=== PATIENT | female | born 1975 | race Caucasian/White ===

== ENCOUNTER 2018-06-18 15:52 | Emergency (ER) | payer OTHER ==
[2018-06-18] MEDS ORDERED: KETOROLAC 30 MG/ML INJ ONE (17:28)
--- NOTE | 2018-06-18 19:08 | EDPHYS ---
Physician Documentation [facility] Name: Sonam Bates Age: 42 yrs Sex: Female : 1975 Arrival Date: 06/18/2018 Time: 15:54 Bed 6 Private MD: Barron Vivas, A ED Physician Red Donaldson HPI: 06/18 19:49 This 42 yrs old Female presents to ER via Ambulatory with complaints of gs Urinary Retention - S/P Lithotripsy, Pelvic Pain. 19:49 Onset: The symptoms/episode began/occurred acutely, today. Modifying factors: The gs symptoms are alleviated by nothing, the symptoms are aggravated by nothing. Associated signs and symptoms: Pertinent positives: urinary frequency, Pertinent negatives: vomiting. Severity of symptoms: At their worst the symptoms were severe, in the emergency department the symptoms are unchanged. The patient has been recently seen by a physician: Dr. tasha quigley [facility]. Historical: - Allergies: 16:22 No Known Allergies; ch - Home Meds: 19:50 Abilify 5 mg Oral tab 1 tab once daily [Active]; Cymbalta Oral [Active]; Metoprolol tl2 Tartrate Oral [Active]; - PMHx: 16:22 Anxiety; Depression; ch - PSHx: 16:22 c section; tummy tuck; ch - Immunization history:: Adult Immunizations up to date. - Social history:: Smoking status: Patient/guardian denies using tobacco, Patient/guardian denies using alcohol, street drugs. - Ebola Screening: : Patient negative for fever greater than or equal to 101.5 degrees Fahrenheit, and additional compatible Ebola Virus Disease symptoms Patient denies exposure to infectious person Patient denies travel to an Ebola-affected area in the 21 days before illness onset No symptoms or risks identified at this time. ROS: 19:49 All other systems are negative. gs Exam: 19:49 Head/Face: Normocephalic, atraumatic. Eyes: Pupils equal round and reactive to light, gs extra-ocular motions intact. Lids and lashes normal. Conjunctiva and sclera are non-icteric and not injected. Cornea within normal limits. Periorbital areas with no swelling, redness, or edema. ENT: Nares patent. No nasal discharge, no septal abnormalities noted. Tympanic membranes are normal and external auditory canals are clear. Oropharynx with no redness, swelling, or masses, exudates, or evidence of obstruction, uvula midline. Mucous membranes moist. Neck: Trachea midline, no thyromegaly or masses palpated, and no cervical lymphadenopathy. Supple, full range of motion without nuchal rigidity, or vertebral point tenderness. No Meningismus. Chest/axilla: Normal chest wall appearance and motion. Nontender with no deformity. No lesions are appreciated. Cardiovascular: Regular rate and rhythm with a normal S1 and S2. No gallops, murmurs, or rubs. Normal PMI, no JVD. No pulse deficits. Respiratory: Lungs have equal breath sounds bilaterally, clear to auscultation and percussion. No rales, rhonchi or wheezes noted. No increased work of breathing, no retractions or nasal flaring. Back: No spinal tenderness. No costovertebral tenderness. Full range of motion. Skin: Warm, dry with normal turgor. Normal color with no rashes, no lesions, and no evidence of cellulitis. MS/ Extremity: Pulses equal, no cyanosis. Neurovascular intact. Full, normal range of motion. Neuro: Awake and alert, GCS 15, oriented to person, place, time, and situation. Cranial nerves II-XII grossly intact. Motor strength 5/5 in all extremities. Sensory grossly intact. Cerebellar exam normal. Normal gait. 19:49 Constitutional: The patient appears alert, awake, uncomfortable. 19:49 Abdomen/GI: Inspection: distension, that is mild, in the suprapubic area, Palpation: moderate abdominal tenderness, in the suprapubic area. Vital Signs: 16:33 BP 112 / 98; Pulse 87; Resp 16; Temp 97.9; Pulse Ox 97% on R/A; Weight 81.65 kg; Height ss 5 ft. (152.40 cm); Pain 9/10; 17:30 BP 116 / 81; Pulse 91; Resp 16; Pulse Ox 99% on R/A; ph 19:04 BP 117 / 67; Pulse 81; Resp 16; Pulse Ox 98% on R/A; ph 16:33 Body Mass Index 35.15 (81.65 kg, 152.40 cm) MDM: 16:49 Patient medically screened. 19:49 Data reviewed: vital signs, nurses notes, lab test result(s). Response to treatment: the patient's symptoms have resolved after treatment, and as a result, I will discharge patient. Physician consultation: Barron Vivas MD and will see patient later today. 06/18 16:52 Order name: Urine Microscopic Only 06/18 19:49 Order name: Urine Culture [facility] 06/18 16:52 Order name: Urine Dipstick-Ancillary (obtain specimen): cath; Complete Time: 19:10 06/18 19:51 Order name: Leg Bag; Complete Time: 19:51 tl2 Administered Medications: 17:35 Drug: TORadol 15 mg Route: IVP; Site: left antecubital; ph 19:10 Follow up: Response: No adverse reaction; Pain is decreased ph Disposition: 06/18/18 19:07 Discharged to Home. Impression: Pelvic and perineal pain, Retention of urine. - Condition is Stable. - Discharge Instructions: Pelvic Pain, Female, [id number], Hensley Catheter Care, Adult, [id number]. - Medication Reconciliation Form, Thank You Letter, Antibiotic Education, Prescription Opioid Use form. - Follow up: Barron Vivas MD; When: 2 - 3 days; Reason: Re-evaluation by your physician. Signatures: Dispatcher [employer] [facility] Antonette Mitchell RN RN Rocio Matthews RN RN Lisa Randall RN RN Rekha Flowers RN RN tl2 Red Donaldson MD MD Corrections: (The following items were deleted from the chart) 19:51 19:07 06/18/2018 19:07 Discharged to Home. Impression: Pelvic and perineal pain; tl2 Retention of urine. Condition is Stable. Forms are Medication Reconciliation Form, Thank You Letter, Antibiotic Education, Prescription Opioid Use. Follow up: Barron Vivas; When: 2 - 3 days; Reason: Re-evaluation by your physician.
--- NOTE | 2018-06-18 19:08 | ER ---
Nurse's Notes [facility] Name: Sonam Bates Age: 42 yrs Sex: Female : 1975 Arrival Date: 06/18/2018 Time: 15:54 Bed 6 Private MD: Barron Vivas A Diagnosis: Pelvic and perineal pain;Retention of urine Presentation: 06/18 16:33 Presenting complaint: Patient states: DR. VIVAS DID LITHOTRIPSY TODAY WITH A KIDNEY ss STENT INSERTED. PT C/O PAIN TO URETHRA, BLADDER, L FLANK. PT REQUESTS WE PAGE DR VIVAS. Transition of care: patient was not received from another setting of care. Onset of symptoms was June 18, 2018 at 10:00. Risk Assessment: Do you want to hurt yourself or someone else? Patient reports no desire to harm self or others. Initial Sepsis Screen: Does the patient meet any 2 criteria? No. Patient's initial sepsis screen is negative. Does the patient have a suspected source of infection? No. Patient's initial sepsis screen is negative. Care prior to arrival: None. 16:33 Method Of Arrival: Ambulatory ss 16:33 Acuity: JACOB 5 ss Triage Assessment: 16:33 General: Appears in no apparent distress. comfortable, Behavior is calm, cooperative, ss appropriate for age. Pain:. Historical: - Allergies: 16:22 No Known Allergies; ch - Home Meds: 19:50 Abilify 5 mg Oral tab 1 tab once daily [Active]; Cymbalta Oral [Active]; Metoprolol tl2 Tartrate Oral [Active]; - PMHx: 16:22 Anxiety; Depression; - PSHx: 16:22 c section; jeff hernandez; - Immunization history:: Adult Immunizations up to date. - Social history:: Smoking status: Patient/guardian denies using tobacco, Patient/guardian denies using alcohol, street drugs. - Ebola Screening: : Patient negative for fever greater than or equal to 101.5 degrees Fahrenheit, and additional compatible Ebola Virus Disease symptoms Patient denies exposure to infectious person Patient denies travel to an Ebola-affected area in the 21 days before illness onset No symptoms or risks identified at this time. Screenin:15 Abuse screen: Denies threats or abuse. Denies injuries from another. Nutritional ph screening: No deficits noted. Tuberculosis screening: No symptoms or risk factors identified. Fall Risk None identified. Assessment: 17:00 General: Appears in no apparent distress. uncomfortable, well groomed, Behavior is ph calm, cooperative, appropriate for age. Pain: Complains of pain in suprapubic area Pain does not radiate. Neuro: Level of Consciousness is awake, alert, obeys commands, Oriented to person, place, time, situation. Cardiovascular: Capillary refill < 3 seconds in bilateral fingers Patient's skin is warm and dry. Respiratory: Airway is patent Respiratory effort is even, unlabored, Respiratory pattern is regular, symmetrical. GI: Abdomen is round non-distended, Reports lower abdominal pain, nausea, Patient currently denies diarrhea, vomiting. : Reports pain in suprapubic area urinary frequency, inability to completely empty bladder. Derm: Skin is intact, is healthy with good turgor, Skin is. Musculoskeletal: Circulation, motion, and sensation intact. Range of motion: intact in all extremities. 18:00 Reassessment: Patient appears in no apparent distress at this time. Patient and/or ph family updated on plan of care and expected duration. Pain level reassessed. Patient is alert, oriented x 3, equal unlabored respirations, skin warm/dry/pink. Pt reports that pain has decreased to 1/10 after IV pain medication. 19:03 Reassessment: Patient appears in no apparent distress at this time. Patient and/or ph family updated on plan of care and expected duration. Pain level reassessed. Patient is alert, oriented x 3, equal unlabored respirations, skin warm/dry/pink. Pt resting comfortably, denies pain, states, " There is still a little pressure but the pain is much better.". 19:47 Reassessment: Patient appears in no apparent distress at this time. Patient and/or tl2 family updated on plan of care and expected duration. Pain level reassessed. Patient is alert, oriented x 3, equal unlabored respirations, skin warm/dry/pink. Pt dove bag converted to leg bag, instructed on how to empty and lock bag. Pt verbalized understanding of discharge instructions, need for follow up Patient states feeling better. Vital Signs: 16:33 BP 112 / 98; Pulse 87; Resp 16; Temp 97.9; Pulse Ox 97% on R/A; Weight 81.65 kg; Height ss 5 ft. (152.40 cm); Pain 9/10; 17:30 BP 116 / 81; Pulse 91; Resp 16; Pulse Ox 99% on R/A; ph 19:04 BP 117 / 67; Pulse 81; Resp 16; Pulse Ox 98% on R/A; ph 16:33 Body Mass Index 35.15 (81.65 kg, 152.40 cm) ED Course: 15:54 Patient arrived in ED. as 15:55 Barron Vivas MD is Private Physician. as 16:33 Arm band placed on left wrist. Patient placed in an exam room, on a stretcher. ss 16:34 Triage completed. ss 16:35 Red Donaldson MD is Attending Physician. gs 17:06 Lisa Randall RN is Primary Nurse. ph 17:30 Inserted saline lock: 20 gauge in left antecubital area, using aseptic technique. ph 17:50 Dove cath inserted, using sterile technique, 16 Fr., by or, balloon inflated, to ph gravity drainage, returned kidney stone frag,ments noted. 18:15 Patient has correct armband on for positive identification. Placed in gown. Bed in low ph position. Call light in reach. Side rails up X 1. Pulse ox on. NIBP on. Warm blanket given. 18:18 No provider procedures requiring assistance completed. ph 18:56 Barron Vivas MD is Referral Physician. gs 19:47 IV discontinued, intact, bleeding controlled, No redness/swelling at site. Pressure tl2 dressing applied. Administered Medications: 17:35 Drug: TORadol 15 mg Route: IVP; Site: left antecubital; ph 19:10 Follow up: Response: No adverse reaction; Pain is decreased ph Outcome: 19:07 Discharge ordered by . gs 19:47 Discharged to home ambulatory, with family. tl2 19:47 Condition: stable 19:47 Discharge instructions given to patient, family, Instructed on discharge instructions, follow up and referral plans. dove care Demonstrated understanding of instructions, follow-up care, dove care 19:51 Patient left the ED. tl2 Signatures: Antonette Mitchell RN RN Mar Syed Shelby, RN RN Lisa Randall RN RN Rekha Flowers RN RN tl2 Red Donaldson MD MD Corrections: (The following items were deleted from the chart) 16:34 16:33 Acuity: JACOB 4 ss ss
[2018-06-18 19:46] LABS: Urine Bacteria >50 /HPF (<20); Urine Culture Reflex Order REFLEXED; Urine RBC >50 /HPF (NONE SEEN)
[2018-06-18 20:02] VITALS: TEMP 97.9
[2018-06-18 20:05] VITALS: BP 117/67; O2SAT 98
== END 2018-06-18 19:51 | disposition home or self-care (01) ==
LOC: ER 15:52
DX: R33.9 Retention of urine, unspecified (principal); F41.9 Anxiety disorder, unspecified; F32.9 Major depressive disorder, single episode, unspecified
CPT/HCPCS: 51702; 81015; 87086; 87088; 96374; 99284

== ENCOUNTER 2020-12-12 20:36 | Emergency (ER) | payer OTHER ==
--- OUTSIDE RECORDS SUMMARY | 2020-12-12 20:39 | XMS REPORT | Continuity of Care Document ---
:1975 Author Organization [facility] t Address [address] [place] [address] Care Team Providers Name Role Phone Lobo Jane Attending Clinician Flor Engel Attending Clinician Flor Engel Admitting Clinician Problems Condition Condition Condition Status Onset Resolution Last Treating Co mments Source Name Details Category Date Date Treatment Clinician Date KIDNEY Diagnosis Active 2019-06-12 Mem oria STONE 06-10 14:59:00 l KIDNEY 00:00: [place] STONE 00 Active 06/10/2019 [facility] Allergies, Adverse Reactions, Alerts This patient has no known allergies or adverse reactions. Medications This patient has no known medications. Vital Signs Vital Name Observation Time Observation Value Comments Source Heart Rate 2019-06-09 15:51:00 [facility] Height 2019-06-09 15:51:00 152.4 cm [facility] Weight 2019-06-09 15:51:00 [facility] BMI Calculated 2019-06-09 15:51:00 Memori al [facility] Systolic (mm Hg) 2019-06-09 15:51:00 Frantz rial Markus Diastolic (mm Hg) 2019-06-09 15:51:00 [facility] oriaustin Anderson Procedures This patient has no known procedures. Encounters Start End Encounter Admission Attending Care Care Encounter Source Date/Time Date/Time Type Type Clinicians Facility Department ID 2019-06-18 2019-06-18 Ambulatory nullFlavo [facility] 55 [id number] Memoria 16:00:00 16:00:00 Pre-Reg r Specialty 00 l Clinic [facility] 2019-06-18 2019-06-18 Outpatient ROBER Jane [facility] [id number] 10:00:00 10:00:00 Etienne Diamond 2019-06-12 2019-06-13 Outpatient nullFlavo [facility] [id number] Memoria 20:45:00 05:59:00 r Markus 00 [facility] 2019-06-12 2019-06-12 Outpatient MAMI EngelSE [facility] [id number] 14:45:00 23:59:00 [place] 00 2019-06-12 2019-06-12 Outpatient MHSE BRAYDEN [id number] MH 14:45:00 14:45:00 [facility] 2019-06-11 2019-06-11 Ambulatory nullFlavo [facility] 55 [id number] Memoria 16:00:00 16:00:00 Pre-Reg r Specialty 01 [facility] 2019-06-11 2019-06-11 Outpatient Lucinda MG MG [id number] 10:00:00 10:00:00 Etienne Diamond 2019-06-09 2019-06-10 Outpatient nullFlavo [facility] Multi 55 [id number] Memoria 15:20:00 05:59:59 r Specialty 02 [facility] 2019-06-09 2019-06-09 Outpatient Maren MG [facility] [id number] 09:20:00 23:59:59 [place] L 2019-06-09 2019-06-09 Outpatient MHIE [facility]IE [id number] Memoria 09:20:00 09:20:00 02 flor Aparicio Results This patient has no known results.
--- NOTE | 2020-12-13 01:27 | ER ---
Nurse's Notes [facility] Name: Sonam Bates Age: 44 yrs Sex: Female : 1975 Arrival Date: 12/12/2020 Time: 20:37 Bed Waiting Private MD: Diagnosis: Presentation: 12/12 21:24 Chief complaint: Patient's son or daughter states: Dog ran off and Pt went to go my vg1 dog; Pt carried 80lb. dog back home and pt began to have difficulty breathing, chest pain, shortness of breath. Pt states "Im trying to control my anxiety right now; Pt stated 'I stopped taking my anxiety mediations because I think they are giving me hives". Coronavirus screen: Vaccine status: Patient reports being unvaccinated. Ebola Screen: Patient negative for fever greater than or equal to 101.5 degrees Fahrenheit, and additional compatible Ebola Virus Disease symptoms. Initial Sepsis Screen: Does the patient meet any 2 criteria? No. Patient's initial sepsis screen is negative. Does the patient have a suspected source of infection? No. Patient's initial sepsis screen is negative. Risk Assessment: Do you want to hurt yourself or someone else? Patient reports no desire to harm self or others. Onset of symptoms was December 12, 2020. 21:24 Method Of Arrival: Wheelchair vg1 21:24 Acuity: JACOB 3 vg1 Triage Assessment: 21:29 General: Appears in no apparent distress. uncomfortable, Behavior is cooperative, vg1 anxious. Pain: Denies pain. Historical: - Allergies: 21:27 medical tape; vg1 21:27 Antibiotic ointment that startes with an 'M'; vg1 - Home Meds: 21:29 Abilify 5 mg Oral tab 1 tab once daily [Active]; Cymbalta Oral [Active]; Metoprolol vg1 Tartrate Oral [Active]; Metformin Oral [Active]; - PMHx: 21:27 Anxiety; Depression; vg1 - Immunization history:: Adult Immunizations up to date. - Social history:: Smoking status: Patient denies any tobacco usage or history of. Vital Signs: 21:24 BP 155 / 88; Pulse 114; Resp 22; Temp 97.7; Pulse Ox 100% ; Weight 81.65 kg; Height 5 vg1 ft. 0 in. (152.40 cm); Pain 0/10; 21:24 Body Mass Index 35.15 (81.65 kg, 152.40 cm) vg1 ED Course: 20:37 Patient arrived in ED. cf2 : Triage completed. vg1 21:29 Arm band placed on. EKG completed in triage. Results shown to MD. vg1 12/13 01:26 Patient's name was called from ER lobby. No response. Unable to locate patient. Will bb disposition as left without being seen by a provider. Administered Medications: No medications were administered Outcome: : Patient left the ED. bb Signatures: Scarlett Moncada RN RN bb Reinaldo Littlejohn cf2 Betzaida Ramirez, RN RN vg1 Corrections: (The following items were deleted from the chart) 12/12 21:29 21:24 Chief complaint: Patient's son or daughter states: Dog ran off and Pt went to go vg1 my dog; Pt carried 80lb. dog back home and pt began to have difficulty breathing, chest pain, shortness of breath. Pt states "Im trying to control my anxiety right now". vg1
[2020-12-13 01:35] VITALS: BP 155/88; TEMP 97.7; O2SAT 100
== END 2020-12-13 01:26 | disposition left against medical advice (07) ==
LOC: ER 20:36
DX: Z53.21 Procedure and treatment not carried out due to patient leaving prior to being seen by health care provider (principal)
CPT/HCPCS: 93005; 99281

== ENCOUNTER 2021-08-21 18:22 | Emergency (ER) | payer BC, OTHER ==
--- OUTSIDE RECORDS SUMMARY | 2021-08-21 18:24 | XMS REPORT | Continuity of Care Document ---
:1975 Author Organization [facility] t Address [address] [place] [address] Care Team Providers Name Role Phone Raghavendra MOBLEY Attending Clinician Unavailable Raghavendra MOBLEY Admitting Clinician Unavailable Problems Condition Condition Condition Status Onset Resolution Last Treating Co mments Source Name Details Category Date Date Treatment Clinician Date KIDNEY Diagnosis Active 2019-06-12 Mem oria STONE 06-10 14:59:00 l KIDNEY 00:00: [place] STONE 00 Active 06/10/2019 [facility] Allergies, Adverse Reactions, Alerts This patient has no known allergies or adverse reactions. Medications This patient has no known medications. Vital Signs Vital Name Observation Time Observation Value Comments Source Weight 2019-06-09 15:51:00 [facility] BMI Calculated 2019-06-09 15:51:00 Memori al [place] Systolic (mm Hg) 2019-06-09 15:51:00 Frantz rial [place] Diastolic (mm Hg) 2019-06-09 15:51:00 [facility] orial [place] Heart Rate 2019-06-09 15:51:00 [facility] Height 2019-06-09 15:51:00 152.4 cm [facility] Procedures This patient has no known procedures. Encounters Start End Encounter Admission Attending Care Care Encounter Source Date/Time Date/Time Type Type Clinicians Facility Department ID 2019-06-18 2019-06-18 Ambulatory nullFlavo [facility] 55 [id number] Memoria 16:00:00 16:00:00 Pre-Reg r Specialty 00 l Clinic [facility] 2019-06-12 2019-06-13 Outpatient nullFlavo [facility] [id number] Memoria 20:45:00 05:59:00 r Markus 00 l [facility] 2019-06-12 2019-06-12 Outpatient ITZ, MAMISE BRAYDEN [id number] MH 14:45:00 14:45:00 PABLITO quintero [facility] 2019-06-11 2019-06-11 Ambulatory nullFlavo [facility] Multi 55 [id number] Memoria 16:00:00 16:00:00 Pre-Reg r Specialty 01 [facility] 2019-06-09 2019-06-10 Outpatient nullFlavo [facility] Multi 55 [id number] Memoria 15:20:00 05:59:59 r Specialty 02 [facility] Results This patient has no known results.
[2021-08-21] MEDS ORDERED: ONDANSETRON 4 MG (ODT) TAB ONE (18:58)
[2021-08-21 21:57] LABS: Urine Blood Negative (Negative); Urine Glucose Negative (Negative); Urine Protein Negative (Negative); Urine Specific Gravity >=1.030 (1.005-1.030)
[2021-08-21 22:24] LABS: Absolute Lymphocytes (CBC) 1.2 K/uL (0.7-4.9); Hematocrit 44.9 % (36.0-45.0); Lymphocytes % 14.8 % (15.3-44.8); MPV 8.7 fL (7.6-11.3); RBC Red Blood Cell Count 5.71 M/uL (3.86-4.86)
[2021-08-21 22:26] LABS: Urine Bacteria <20 /HPF (<20); Urine Mucus SLIGHT /HPF (NONE SEEN); Urine RBC NONE SEEN /HPF (NONE SEEN)
[2021-08-21 22:40] LABS: Albumin 3.7 g/dL (3.4-5.0); Bilirubin Total 0.9 mg/dL (0.2-1.0); Potassium 3.8 mmol/L (3.5-5.1); Protein, Total 7.6 g/dL (6.4-8.2)
[2021-08-21] MEDS ORDERED: NA CHLORIDE 0.9% 1,000 ML ONE (23:06)
[2021-08-21] MEDS ORDERED: FAMOTIDINE 20 MG/2 ML VIAL IV ONE (23:06)
[2021-08-21] MEDS ORDERED: MORPHINE 4 MG/ML SYR ONE (23:06)
--- NOTE | 2021-08-22 00:48 | ER ---
Nurse's Notes [facility] Name: Sonam Bates Age: 45 yrs Sex: Female : 1975 Arrival Date: 08/21/2021 Time: 18:26 Bed 26 Private MD: Diagnosis: Nausea;Abdominal pain, unspecified Presentation: 08/21 18:43 Chief complaint: Patient states: Nausea and loss of appetite 2 weeks, then began having ph low back radiating up and lower abdominal pain, hx of kidney stones but this does not feel the same. Also reports diarrhea, denies fever or chills. Coronavirus screen: Vaccine status: Patient reports receiving the 2nd dose of the covid vaccine. Ebola Screen: No symptoms or risks identified at this time. Initial Sepsis Screen: Does the patient meet any 2 criteria? No. Patient's initial sepsis screen is negative. Does the patient have a suspected source of infection? No. Patient's initial sepsis screen is negative. Risk Assessment: Do you want to hurt yourself or someone else? Patient reports no desire to harm self or others. Onset of symptoms was August 21, 2021. 18:43 Method Of Arrival: Ambulatory ph 18:43 Acuity: JACOB 3 ph Triage Assessment: 18:49 General: Appears in no apparent distress. comfortable, Behavior is calm, cooperative, ph appropriate for age, Denies fever, chills. Pain: Complains of pain in low back area. Pain: Complains of pain in right lower quadrant and left lower quadrant. Neuro: No deficits noted. GI: Abdomen is non-distended, Reports lower abdominal pain, diarrhea, nausea. Derm: Skin is intact, is healthy with good turgor, Skin is pink, warm \T\ dry. Historical: - Allergies: 18:48 Antibiotic ointment that startes with an 'M'; ph 18:48 medical tape; ph - Home Meds: 18:48 Abilify 5 mg Oral tab 1 tab once daily [Active]; Cymbalta Oral [Active]; Metformin Oral ph [Active]; Metoprolol Tartrate Oral [Active]; - PMHx: 18:48 Anxiety; Depression; ph - Immunization history:: Adult Immunizations unknown. - Social history:: Smoking status: Patient denies any tobacco usage or history of. Screenin:56 Abuse screen: Denies threats or abuse. Denies injuries from another. Nutritional ld1 screening: No deficits noted. Tuberculosis screening: No symptoms or risk factors identified. Fall Risk None identified. Assessment: 21:56 Reassessment: Patient appears in no apparent distress at this time. See triage ld1 assessmnet. 23:12 Reassessment: Patient appears in no apparent distress at this time. Patient is alert, ld1 oriented x 3, equal unlabored respirations, skin warm/dry/pink. Patient states feeling better. 05 00:36 Reassessment: Patient appears in no apparent distress at this time. No changes from lg3 previously documented assessment. Patient and/or family updated on plan of care and expected duration. Pain level reassessed. Patient is alert, oriented x 3, equal unlabored respirations, skin warm/dry/pink. Patient states feeling better. Patient states symptoms have improved. 01:37 GI: lg3 Vital Signs: 08/21 18:43 BP 111 / 65; Pulse 115; Resp 18; Temp 97.81; Pulse Ox 100% on R/A; Weight 77.56 kg; ph Height 5 ft. 0 in. (152.40 cm); 21:56 BP 118 / 70; Pulse 109; Resp 18; Pulse Ox 100% on R/A; ld1 23:12 BP 126 / 71; Pulse 107; Resp 18; Pulse Ox 100% on R/A; Pain 3/10; ld1 05/09 00:36 BP 122 / 74; Pulse 98; Resp 17; Pulse Ox 100% on R/A; lg3 05 18:43 Body Mass Index 33.40 (77.56 kg, 152.40 cm) ph ED Course: 08/21 18:26 Patient arrived in ED. ds1 18:48 Triage completed. ph 18:48 Arm band placed on Patient placed in waiting room, Patient notified of wait time. ph 21:18 Kamari Soler PA is PHCP. cp 21:18 Carlos Torres MD is Attending Physician. cp 21:40 Sarah Kumar, JOHAN is Primary Nurse. ld1 21:56 Patient has correct armband on for positive identification. Placed in gown. Bed in low ld1 position. Call light in reach. Side rails up X2. quality assurance monitor body on. Pulse ox on. NIBP on. Door closed. Noise minimized. Warm blanket given. 21:56 No provider procedures requiring assistance completed. ld1 22:09 Urine Microscopic Only Sent. ld1 22:18 Inserted saline lock: 20 gauge in right antecubital area, using aseptic technique. ld1 Blood collected. 08/22 00:00 CT Abd/Pelvis - IV Contrast Only In Process Unspecified. EDMS 00:47 Brad Gomez MD is Referral Physician. cp 01:37 IV discontinued, intact, bleeding controlled, No redness/swelling at site. Pressure lg3 dressing applied. Administered Medications: 08/21 18:54 Drug: Ondansetron 4 mg Route: PO; ph 08/22 01:41 Follow up: Response: No adverse reaction lg3 08/21 23:08 Drug: NS 0.9% 1000 ml Route: IV; Rate: 1 bolus; Site: right antecubital; ld1 08/22 01:41 Follow up: Response: No adverse reaction; IV Status: Completed infusion; IV Intake: lg3 1000ml 08/21 23:08 Drug: morphine 4 mg Route: IVP; Site: right antecubital; ld1 08/22 00:36 Follow up: Response: No adverse reaction lg3 08/21 23:08 Drug: Pepcid (famotidine) 20 mg Route: IVP; Site: right antecubital; ld1 08/22 00:36 Follow up: Response: No adverse reaction lg3 Intake: 01:41 IV: 1000ml; Total: 1000ml. lg3 Outcome: 00:48 Discharge ordered by . cp 01:36 Discharged to home ambulatory. lg3 01:36 Condition: stable 01:36 Discharge instructions given to patient, Instructed on discharge instructions, follow up and referral plans. medication usage, Demonstrated understanding of instructions, follow-up care, medications, Prescriptions given X 1. 01:37 Patient left the ED. lg3 Signatures: Dispatcher [employer] EDWI Deborah Hartman ds1 Lisa Randall RN RN ph Kamari Soler PA PA cp Nely Meléndez RN RN lg3 Sarah Kumar RN RN ld1
--- NOTE | 2021-08-22 00:48 | EDPHYS ---
Physician Documentation [facility] Name: Sonam Bates Age: 45 yrs Sex: Female : 1975 Arrival Date: 08/21/2021 Time: 18:26 Bed 26 Private MD: ED Physician Carlos Torres HPI: 08/21 22:00 This 45 yrs old Female presents to ER via Ambulatory with complaints of Abdominal Pain. cp 22:00 The patient presents with abdominal pain mid abdomen. Onset: The symptoms/episode cp began/occurred 2 week(s) ago. The symptoms radiate to back. Associated signs and symptoms: Pertinent positives: anorexia, diarrhea, nausea, Pertinent negatives: fever, vomiting. Historical: - Allergies: 18:48 Antibiotic ointment that startes with an 'M'; ph 18:48 medical tape; ph - Home Meds: 18:48 Abilify 5 mg Oral tab 1 tab once daily [Active]; Cymbalta Oral [Active]; Metformin Oral ph [Active]; Metoprolol Tartrate Oral [Active]; - PMHx: 18:48 Anxiety; Depression; ph - Immunization history:: Adult Immunizations unknown. - Social history:: Smoking status: Patient denies any tobacco usage or history of. ROS: 22:05 Constitutional: Positive for poor PO intake, Negative for body aches, chills, fever. cp 22:05 Eyes: Negative for injury, pain, redness, and discharge. cp 22:05 ENT: Negative for drainage from ear(s), ear pain, sore throat, difficulty swallowing, difficulty handling secretions. 22:05 Cardiovascular: Negative for chest pain, edema, palpitations. 22:05 Respiratory: Negative for cough, shortness of breath, wheezing. 22:05 Abdomen/GI: Positive for nausea, diarrhea, anorexia, Negative for vomiting, constipation, hematemesis, black/tarry stool, rectal bleeding. 22:05 Back: Positive for radiated pain, Negative for 22:05 : Negative for urinary symptoms. 22:05 Neuro: Negative for altered mental status, dizziness, headache, syncope, weakness. 22:05 All other systems are negative. Exam: 22:10 Constitutional: The patient appears in no acute distress, alert, awake, non-toxic, well cp developed, well nourished. 22:10 Head/Face: Normocephalic, atraumatic. cp 22:10 Eyes: Periorbital structures: appear normal, Conjunctiva: normal, no exudate, no injection, Sclera: no appreciated abnormality, Lids and lashes: appear normal, bilaterally. 22:10 ENT: External ear(s): are unremarkable, Nose: is normal, Mouth: Lips: moist, Oral mucosa: pink and intact, moist, Posterior pharynx: Airway: no evidence of obstruction, patent. 22:10 Neck: ROM/movement: is normal, is supple, without pain, no range of motions limitations. 22:10 Chest/axilla: Inspection: normal, Palpation: is normal, no crepitus, no tenderness. 22:10 Cardiovascular: Rate: tachycardic, Rhythm: regular. 22:10 Respiratory: the patient does not display signs of respiratory distress, Respirations: normal, no use of accessory muscles, no retractions, labored breathing, is not present, Breath sounds: are clear throughout, no decreased breath sounds, no stridor, no wheezing. 22:10 Abdomen/GI: Inspection: abdomen appears normal, Bowel sounds: active, all quadrants, Palpation: soft, in all quadrants, mild abdominal tenderness, in the mid abdomen, rebound tenderness, is not appreciated, involuntary guarding, is not appreciated. 22:10 Back: CVA tenderness, is absent. 22:10 Neuro: Orientation: to person, place \T\ time. Mentation: is normal, Motor: moves all fours, strength is normal, Sensation: is normal. Vital Signs: 18:43 BP 111 / 65; Pulse 115; Resp 18; Temp 97.81; Pulse Ox 100% on R/A; Weight 77.56 kg; ph Height 5 ft. 0 in. (152.40 cm); 21:56 BP 118 / 70; Pulse 109; Resp 18; Pulse Ox 100% on R/A; ld1 23:12 BP 126 / 71; Pulse 107; Resp 18; Pulse Ox 100% on R/A; Pain /10; ld1 08/22 00:36 BP 122 / 74; Pulse 98; Resp 17; Pulse Ox 100% on R/A; lg3 08/21 18:43 Body Mass Index 33.40 (77.56 kg, 152.40 cm) ph MDM: 08/21 21:57 Patient medically screened. cp 22:00 Differential diagnosis: appendicitis, cholecystitis, Cholelithiasis, diverticulitis, cp gastritis, non-specific abd pain, pancreatitis, Pyelonephritis, Ureterolithiasis, urinary tract infection, colitis. 08/22 00:46 Data reviewed: vital signs, nurses notes, lab test result(s), radiologic studies, CT cp scan. Counseling: I had a detailed discussion with the patient and/or guardian regarding: the historical points, exam findings, and any diagnostic results supporting the discharge/admit diagnosis, lab results, radiology results, the need for outpatient follow up, a home service director. Response to treatment: the patient's symptoms have markedly improved after treatment, Nausea and pain markedly improved. Will discharge to home for continued monitoring. 08/21 21:41 Order name: CBC with Diff; Complete Time: 22:44 ld1 08/22 00:12 Interpretation: Normal except: RBC 5.71; HGB 15.1; MCV 78.6; MCH 26.5; LYM% 14.8. 08/21 21:41 Order name: CMP; Complete Time: 22:44 ld 08/22 00:13 Interpretation: Normal except: GLUC 132; GFR 59; A/G 0.9; GLOB 3.9. cp 08/21 21:41 Order name: Lipase; Complete Time: 22:44 ld1 08/22 00:13 Interpretation: Reviewed. 08/21 21:58 Order name: Urine Microscopic Only; Complete Time: 22:44 cp 08/22 00:13 Interpretation: Reviewed. 08/21 21:58 Order name: Urine Dipstick-Ancillary; Complete Time: 22:44 EDMS 08/21 21:41 Order name: IV Saline Lock; Complete Time: 22:18 ld1 08/21 21:41 Order name: Labs collected and sent; Complete Time: 22:18 ld1 08/21 21:41 Order name: Urine Dipstick-Ancillary (obtain specimen); Complete Time: 22:00 ld1 08/21 22:45 Order name: CT Abd/Pelvis - IV Contrast Only cp 08/21 21:41 Order name: Urine Test (obtain specimen); Complete Time: 22:00 ld1 08/22 00:37 Order name: PO challenge; Complete Time: 01:41 cp Administered Medications: 08/21 18:54 Drug: Ondansetron 4 mg Route: PO; ph 08/22 01:41 Follow up: Response: No adverse reaction lg3 08/21 23:08 Drug: NS 0.9% 1000 ml Route: IV; Rate: 1 bolus; Site: right antecubital; ld1 08/22 01:41 Follow up: Response: No adverse reaction; IV Status: Completed infusion; IV Intake: lg3 1000ml 08/21 23:08 Drug: morphine 4 mg Route: IVP; Site: right antecubital; ld1 08/22 00:36 Follow up: Response: No adverse reaction lg3 08/21 23:08 Drug: Pepcid (famotidine) 20 mg Route: IVP; Site: right antecubital; ld1 08/22 00:36 Follow up: Response: No adverse reaction lg3 Disposition: 07:25 Co-signature as Attending Physician, Carlos Torres MD. mh7 Disposition Summary: 08/22/21 00:48 Discharge Ordered Location: Home cp Problem: new cp Symptoms: have improved cp Condition: Stable cp Diagnosis - Nausea cp - Abdominal pain, unspecified cp Followup: cp - With: Brad Gomez MD - When: 2 - 3 days - Reason: Recheck today's complaints Discharge Instructions: - Discharge Summary Sheet cp - Abdominal Pain, Adult cp - Nausea, Adult cp Forms: - Medication Reconciliation Form cp - Thank You Letter cp - Antibiotic Education cp - Prescription Opioid Use cp Prescriptions: - Zofran 4 mg Oral Tablet - take 1 tablet by ORAL route every 12 hours As needed; 20 tablet; Refills: 0, cp Product Selection Permitted Signatures: Dispatcher [employer] Lisa Malloy RN RN ph Karlene, Kamari, TIA PA cp Carlos Torres MD MD mh7 Sarah Kumar RN RN ld1 Nely Meléndez RN lg3 Corrections: (The following items were deleted from the chart) 00:13 00:12 Normal except: GLUC 132; GFR 59. cp cp
[2021-08-22 02:30] VITALS: O2SAT 100
[2021-08-22 02:37] VITALS: BP 122/74
--- NOTE | 2021-08-22 15:09 | RAD REPORT ---
EXAM DESCRIPTION: CT - Abdomen Pelvis W Contrast - 08/22/2021 6:47 am CLINICAL HISTORY: Abdominal pain, acute, nonlocalized. COMPARISON: None. TECHNIQUE: CT of the abdomen and pelvis was performed following intravenous administration of iodina julio contrast. Arterial phase images through the abdomen, and portal venous phase images through the a bdomen and pelvis were obtained. Oral contrast was not administered. Axial, coronal, and sagittal sof t tissue window reconstructions were created and sent to PACS. This exam was performed according to our departmental dose-optimization program, which includes autom ated exposure control, adjustment of the mA and/or kV according to patient size and/or use of iterati ve reconstruction technique. FINDINGS: Thoracic: No significant abnormality. Hepatobiliary: Diffuse hepatic steatosis. No concerning hepatic lesion identified. The portal veins a re patent. The gallbladder is unremarkable. No biliary ductal dilatation. Pancreas: Unremarkable. Spleen: Unremarkable. Gastrointestinal: No evidence of bowel obstruction or perienteric inflammation. The appendix is christa l. Small amount of fecal material throughout the colon. Possible small posterior gastric fundus diver ticulum. Adrenals: No abnormality identified in either adrenal gland. Renal: Multifocal chronic left renal cortical defects. No concerning parenchymal lesion identified bi laterally. Punctate nonobstructive calculus in the superior right kidney. No hydronephrosis or ureter al calculi bilaterally. Bladder/Reproductive: Unremarkable appearance of the urinary bladder by CT technique. Well positioned intrauterine device. Small left fundal uterine fibroid measures 1.8 cm (intramural). Unremarkable CT appearance of the ovaries. Vascular/Lymphatics: No lymphadenopathy identified by CT size criteria. Abdominal aorta is normal in caliber. Musculoskeletal: No concerning osseous lesion identified. Fluid / peritoneum: No significant free fluid. No free intraperitoneal air identified. IMPRESSION 1. No acute abnormality identified in the abdomen or pelvis by CT. 2. Multifocal chronic left renal cortical defects. 3. Punctate nonobstructive right renal calculus. Electronically signed by: Jenny Negro MD 08/22/2021 12:20 AM CDT Due to temporary technical issues with the PACS/Fluency reporting system, reports are being signed by the in house radiologist without review as a courtesy to ensure prompt reporting. The interpreting r adiologist is fully responsible for the content of the report.
== END 2021-08-22 01:37 | disposition home or self-care (01) ==
LOC: ER 18:22
DX: R11.0 Nausea (principal); R10.30 Lower abdominal pain, unspecified; F32.A Depression, unspecified; F41.9 Anxiety disorder, unspecified; Z88.1 Allergy status to other antibiotic agents; Z91.048 Other nonmedicinal substance allergy status
CPT/HCPCS: 85025; 36415; 83690; 80053; 74177; Q9967; J7030; J3490; 81003; 81015; 96361; 96374; 96375; 99284

== ENCOUNTER 2022-02-18 04:34 | Emergency (ER) | payer BC ==
--- OUTSIDE RECORDS SUMMARY | 2022-02-18 04:37 | XMS REPORT | Continuity of Care Document ---
:1975 Author Organization [facility] t Address [address] [place] [address] Care Team Providers Name Role Phone Asked, No Pcp Primary Care Physician Unavailable Benjamín DAVID, Denia Kovacs Attending Clinician Leia DAVID, Mayra Felipe Attending Clinician Rashawn DAVID, Yasir Allred Attending Clinician [phone] Etienne Jane Attending Clinician Pablito Mobley Attending Clinician PABLITO MOBLEY Attending Clinician Unavailable DENIA COOL Admitting Clinician Unavailable Pablito Mobley Admitting Clinician PABLITO MOBLEY Admitting Clinician Unavailable Payers Payer Name Policy Type Policy Number Effective Date Expiration Date S ource Problems Condition Condition Condition Status Onset Resolution Last Treating Co mments Source Name Details Category Date Date Treatment Clinician Date Hypertroph Hypertroph Disease Active [facility] of [facility] tonsils tonsils 00:00: Hospita 00 l Hypertroph Hypertroph Disease Active M ethodi y of nasal y of nasal [facility] turbinates turbinates 00:00: Ho spita 00 l Nasal Nasal Disease Active Methodi congestion congestion 12-[facility] st 00:00: Hospita 00 l Deviated Deviated Disease Active Metho di nasal nasal [facility] septum septum 00:00: Hospita 00 l KIDNEY KIDNEY Diagnosis Active 2019-06-12 Me moria [facility] 06-10 14:59:00 l Active 00:00: Markus 06/10/2019 00 [facility] Allergies, Adverse Reactions, Alerts Allergy Allergy Status Severity Reaction(s) Onset Inactive Treating Comm ents Source Name Type Date Date Clinician Adhesive Propensi Active Rash Method i Tape-Anna ty to [facility] icones adverse 00:00: Hospita reaction 00 l s to drug Mupiroci Propensi Active Rash Method i n ty to [facility] adverse 00:00: Hospita reaction 00 l s to drug Social History Social Habit Start Date Stop Date Quantity Comments Source Alcohol intake 2022-01-02 2022-01-02 [facility] 00:00:00 00:00:00 Hospital Alcohol Comment 2021-12-30 2021-12-30 social [facility] 00:00:00 00:00:00 Hospital Tobacco use and 2021-12-30 2021-12-30 Smokeless tobacco Me thodist exposure 00:00:00 00:00:00 non-user Hospital Sex Assigned At [birth year] [facility] 00:00:00 00:00:00 Hospital Smoking Status Start Date Stop Date Source Never smoked tobacco [facility]spital Medications Ordered Filled Start Stop Current Ordering Indication Dosage Frequency Signature Comments Components Source Medication Medication Date Date Medication? Clinician (SIG) Name Name HYDROcodone 2021- No 28[address] 15mL Q6H Take 15 mL Methodi -acetaminop 12-[address] hen (HYCET) 00:00: 04:59 every 6 Ho spita 2.5-108.3 00 :00 (six) l mg/5 mL hours as solution needed for moderate pain for up to 7 days .acute pain. Max Daily Amount: 60 mL amoxicillin 2021- No 500mg Q.5D Take 10 mL Methodi -pot 12-30 ([address] clavulanate 00:00: 04:59 total) by Hospita (Augmentin) 00 :00 mouth 2 l 250-62.5 (two) mg/5 mL times a suspension day for 7 days. Vital Signs Vital Name Observation Time Observation Value Comments Source Systolic blood 2021-12-30 21:30:00 140 mm[Hg] [facility] pressure Diastolic blood 2021-12-30 21:30:00 90 mm[Hg] [facility] pressure Heart rate 2021-12-30 21:30:00 97 /min [facility] Body temperature 2021-12-30 21:30:00 37.06 Oma [facility] Respiratory rate 2021-12-30 21:30:00 22 /min [facility] Oxygen saturation in 2021-12-30 21:30:00 97 /min [facility] Arterial blood by Pulse oximetry Body height 2021-12-30 11:38:00 152.4 cm [facility] Body weight 2021-12-30 11:38:00 76.431 kg [facility] BMI 2021-12-30 11:38:00 32.91 kg/m2 [facility] Weight 2019-06-09 15:51:00 [facility] BMI Calculated 2019-06-09 15:51:00 Memori al [place] Systolic (mm Hg) 2019-06-09 15:51:00 Frantz rial [place] Diastolic (mm Hg) 2019-06-09 15:51:00 Mem orial Markus Heart Rate 2019-06-09 15:51:00 [facility] Height 2019-06-09 15:51:00 152.4 cm [facility] Procedures Procedure Date / Time Performed Performing Clinician [facility] e SURGICAL PATHOLOGY 2021-12-30 21:09:00 [facility] REQUEST POC GLUCOSE 2021-12-30 18:11:00 [facility] SD AN ELECTIVE 2021-12-30 13:37:00 Bryon Méndez Ho spital ENDOTRACHEAL AIRWAY SEPTOPLASTY, NASAL 2021-12-30 13:26:00 [facility] POC PANEL 2021-12-30 12:48:00 [facility] HCG QUALITATIVE, URINE 2021-12-30 00:00:00 Provider, Not In [facility] SCREEN System Encounters Start End Encounter Admission Attending Care Care Encounter Source Date/Time Date/Time Type Type Clinicians Facility Department ID 2021-12-30 2021-12-30 [facility] [place], 1.2.840.1 [id number] Methodi 05:48:00 23:59:00 Encounter Denia Kovacs [id number] 3.430.2.7 Hospit a .3.428253 l .8 2021-12-30 2021-12-30 Anesthesia Leia Mayra Chatmann [id number] Methodi 08:26:00 13:12:00 Event Yasir Morocho Chalino [id number] 3.430.2.7 Hospit a .3.964019 l .8 2021-12-30 2021-12-30 Surgery [place], 1.2.840.1 [id number] Methodi 07:30:00 12:00:00 Denia Kovacs [id number] 3.430.2.7 Hospit a .3.254504 l .8 2021-12-30 2021-12-30 Outpatient [facility] [id number] [place] 00:00:00 00:00:[address] DEN[address] 2021-12-30 2021-12-30 Travel 1.2.840.1 [id number] Methodi 00:00:00 00:00:[id number] 3.430.2.7 0.2.7.3.698 [facility] .[id number] 084.8 l .8 2019-06-18 2019-06-18 Ambulatory nullFlavo [facility] 55 [id number] Memoria 16:00:00 16:00:00 Pre-Reg r Specialty 00 l [facility] 2019-06-18 2019-06-18 Ambulatory nullFlavo [facility] Multi 55 [id number] Memoria 16:00:00 16:00:00 Pre-Reg r Specialty 00 l [facility] 2019-06-18 2019-06-18 [id number] 10:00:00 10:00:00 Etienne Diamond 2019-06-12 2019-06-13 Outpatient [facility] [id number] Memoria 20:45:00 05:59:00 r [place] 00 l [facility] 2019-06-12 2019-06-13 Outpatient nullFlavo [facility] [id number] Memoria 20:45:00 05:59:00 r [place] 00 l [facility] 2019-06-12 2019-06-12 Outpatient Itz [facility]SE MHSE [id number] 14:45:00 23:59:00 Pablito L 00 2019-06-12 2019-06-12 Outpatient ITZ, [facility] [place] 7500 MH 14:45:00 14:45:00 PABLITO [facility] 2019-06-11 2019-06-11 Ambulatory nullFlavo [facility] Multi 55 [id number] Memoria 16:00:00 16:00:00 Pre-Reg r Specialty 01 [facility] 2019-06-11 2019-06-11 Ambulatory nullFlavo [facility] Multi 55 [id number] Memoria 16:00:00 16:00:00 Pre-Reg r Specialty 01 [facility] 2019-06-11 2019-06-11 Outpatient [place], [facility] [id number] 10:00:00 10:00:00 Etienne Diamond 2019-06-09 2019-06-10 Outpatient nullFlavo [facility] Multi 55 [id number] Memoria 15:20:00 05:59:59 r Specialty 02 [facility] 2019-06-09 2019-06-10 Outpatient nullFlavo [facility] Multi 55 [id number] Memoria 15:20:00 05:59:59 r Specialty 02 [facility] 2019-06-09 2019-06-09 Outpatient [place], [facility] [id number] 09:20:00 23:59:59 Pablito 2019-06-09 2019-06-09 Outpatient MHIE MHIE [id number] Memoria 09:20:00 09:20:00 02 [facility] Results Test Description Test Time Test Comments Results Result Comments Source Surgical pathology request 2022-01-07 20:41:31 Test Item Value Reference Range Interpretation Comme nts Case number (test code = [id number]) [id number] Surgical pathology report (test code = See link below for PDF Lab R eport 5677) Result status (test code = 3611361) This is Final Report for [id number] [facility] [id number] 18:12:00 Test Item Value Reference Range Interpretation Comments POC glucose (test code 167 mg/dL 65-99 H Opera tor Name: = [id number]) Anjelica Stephens abeba ID: [id number] able: [facility] Notified milk drier Interpretation Abnormal (test code = 58763-3) [facility] qualitative, urine [id number] 11:30:00 Test Item Value Reference Range Interpretation Comments hCG qualitative, urine (test code = negative 8-8) [facility]
[2022-02-18] MEDS ORDERED: ONDANSETRON 4 MG/2 ML VIAL ONE (05:20)
[2022-02-18] MEDS ORDERED: KETOROLAC 30 MG/ML INJ ONE (05:20)
[2022-02-18] MEDS ORDERED: NA CHLORIDE 0.9% 1,000 ML ONE (05:20)
[2022-02-18 05:51] LABS: Absolute Lymphocytes (CBC) 2.1 K/uL (0.7-4.9); MCV 81.2 fL (80-100); MPV 8.8 fL (7.6-11.3)
[2022-02-18] MEDS ORDERED: HYDROMORPHONE HCL 0.5 MG/0.5 ML INJ ONE (05:51)
[2022-02-18 06:09] LABS: Albumin 3.8 g/dL (3.4-5.0); Bilirubin Total 0.7 mg/dL (0.2-1.0); Potassium 3.8 mmol/L (3.5-5.1); Protein, Total 7.9 g/dL (6.4-8.2)
--- NOTE | 2022-02-18 06:18 | RAD REPORT ---
EXAM DESCRIPTION: CTStone Protocol - 02/18/2022 6:06 am CLINICAL HISTORY: pain COMPARISON: Abdomen Pelvis W Contrast dated 07/29/2017; Abdomen Pelvis W Contrast dated 7; Abdomen Pelvis W Contrast dated 10/10/2016Abdomen Pelvis W Contrast dated 08/21/2021; Stone Monica col dated 06/06/2018; CT ABDOMEN PELVIS WO CONTRAST dated 01/04/2015 TECHNIQUE: CT of the abdomen and pelvis was performed. All CT scans are performed using dose optimization technique as appropriate and may include automated exposure control or mA/KV adjustment according to patient size. FINDINGS: Lower chest: No acute abnormality. Liver: Hepatic steatosis. Biliary: No biliary ductal dilatation. Stomach: No significant focal abnormality. Duodenum: No significant focal abnormality. Pancreas: No significant abnormality. Spleen: No significant abnormality. Adrenal: No suspicious lesions. Kidney/ureter: Mild right-sided hydroureteronephrosis secondary to a 4 mm stone in the right distal u reter. This is proximal to the UVJ. Left renal scarring. . Retroperitoneum: No retroperitoneal adenopathy. Vascular: No aneurysm. Bowel: No significant focal abnormality. Peritoneum: No ascites or free air. Bladder: Grossly unremarkable. Reproductive: No adnexal masses. IUD. Bones: No acute fracture. Other: n/a IMPRESSION: Mild right-sided hydroureteronephrosis secondary to a 4 mm stone in the right distal ure ter.
--- NOTE | 2022-02-18 07:09 | ER ---
Nurse's Notes [facility] Name: Sonam Bates Age: 46 yrs Sex: Female : 1975 Arrival Date: 02/18/2022 Time: 04:39 Bed 7 Private MD: Diagnosis: Ureterolithiasis, kidney stone Presentation: 02/18 04:57 Chief complaint: Patient states: she started having right flank pain about an hour ago bb she has hx of kidney stones pain is 9/10. Coronavirus screen: At this time, the client does not indicate any symptoms associated with coronavirus-19. Ebola Screen: No symptoms or risks identified at this time. Initial Sepsis Screen: Does the patient meet any 2 criteria? No. Patient's initial sepsis screen is negative. Does the patient have a suspected source of infection? No. Patient's initial sepsis screen is negative. Risk Assessment: Do you want to hurt yourself or someone else? Patient reports no desire to harm self or others. Onset of symptoms was February 18, 2022. 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 - Social history:: Smoking status: Patient denies any tobacco usage or history of. Screenin:32 Abuse screen: Denies threats or abuse. Denies injuries from another. Nutritional tw5 screening: No deficits noted. Tuberculosis screening: No symptoms or risk factors identified. Fall Risk IV access (20 points). Assessment: 05:32 General: Appears in no apparent distress. Behavior is calm, cooperative, appropriate tw5 for age. Pain: Complains of pain in right mid back and right low back Pain currently is 10 out of 10 on a pain scale. Neuro: Level of Consciousness is awake, alert, obeys commands, Oriented to person, place, time, situation. Respiratory: Airway is patent Trachea midline Respiratory effort is even, unlabored. GI:. 06:38 Pain: Pain currently is 1 out of 10 on a pain scale. as6 Vital Signs: 04:57 BP 140 / 82; Pulse 76; Resp 20 S; Temp 97.8(O); Pulse Ox 95% on R/A; Weight 71.67 kg bb (R); Height 5 ft. 4 in. (162.56 cm) (R); Pain 9/10; 05:32 BP 158 / 94; Pulse 82; Resp 18; Pulse Ox 100% ; tw5 06:38 BP 130 / 71; Pulse 74; Resp 18 S; Pulse Ox 97% on R/A; Pain 1/10; as6 07:50 BP 130 / 80; Pulse 76; Resp 18; Temp 98.0; Pulse Ox 99% on R/A; ph 04:57 Body Mass Index 27.12 (71.67 kg, 162.56 cm) ED Course: 04:39 Patient arrived in ED. ja2 04:48 David Tracy MD is Attending Physician. kdr 04:49 Andry Watts, RN is Primary Nurse. as6 04:59 Triage completed. bb 04:59 Arm band placed on Patient placed in an exam room, on a stretcher, on pulse oximetry. bb Family accompanied patient. 05:31 Lipase Sent. tw5 05:31 CMP Sent. tw5 05:31 CBC with Diff Sent. tw5 05:32 Awaiting lab results, Awaiting CT Scan. tw5 05:32 Patient has correct armband on for positive identification. Bed in low position. Call tw5 light in reach. Side rails up X 1. Adult w/ patient. Pulse ox on. NIBP on. Door closed. Noise minimized. Moved to private room. Warm blanket given. 05:32 Initial lab(s) drawn, by me, sent to lab. Inserted saline lock: 20 gauge in right tw5 antecubital area, using aseptic technique. Blood collected. 05:39 Attending Physician role handed off by David Tracy MD sp3 05:39 Collin Sanders MD is Attending Physician. sp3 06:07 CT Stone Protocol In Process Unspecified. EDMS 07:07 Aj Rooney MD is Referral Physician. sp3 07:50 No provider procedures requiring assistance completed. IV discontinued, intact, ph bleeding controlled, No redness/swelling at site. Pressure dressing applied. Administered Medications: 05:31 Drug: Ketorolac 15 mg Route: IVP; Site: right antecubital; tw5 05:31 Drug: Zofran (Ondansetron) 4 mg Route: IVP; Site: right antecubital; tw5 05:31 Drug: NS 0.9% 1000 ml Route: IV; Rate: 1 bolus; Site: right antecubital; tw5 07:49 Follow up: Response: No adverse reaction; IV Status: Completed infusion; IV Intake: ph 1000ml 05:53 Drug: Dilaudid (HYDROmorphone) 1 mg Route: IVP; Site: right antecubital; tw5 07:40 Drug: Dilaudid (HYDROmorphone) 1 mg Route: IVP; Site: right antecubital; ph 07:50 Follow up: Response: No adverse reaction; Pain is decreased; RASS: Alert and Calm (0) ph Medication: 05:32 VIS not applicable for this client. tw5 Intake: 07:49 IV: 1000ml; Total: 1000ml. ph Outcome: 07:08 Discharge ordered by . sp3 07:50 Discharged to home via wheelchair, with family. ph 07:50 Condition: good 07:50 Condition: good 07:50 Discharge instructions given to patient, Instructed on discharge instructions, follow up and referral plans. medication usage, Demonstrated understanding of instructions, follow-up care, medications, Prescriptions given X 1. 07:51 Patient left the ED. ph Signatures: Dispatcher [employer] EDMS David Tracy MD MD kdr Ballard, Brenda RN RN bb Lisa Randall RN RN ph Collin Sanders MD MD sp3 Linette Luciano Tiffany tw5 Andry Watts, RN RN as6 Corrections: (The following items were deleted from the chart) 05:01 04:59 Allergies: Antibiotic ointment that startes with an 'M'; liath ozuna
--- NOTE | 2022-02-18 07:09 | EDPHYS ---
Physician Documentation [facility] Name: Sonam Bates Age: 46 yrs Sex: Female : 1975 Arrival Date: 02/18/2022 Time: 04:39 Bed 7 Private MD: ED Physician Collin Sanders HPI: 02/18 05:57 This 46 yrs old Female presents to ER via Ambulatory with complaints of Possible Kidney sp3 Stone. 05:57 46-year-old female with history of kidney stones, hypertension, hyperlipidemia presents sp3 with a 1 hour history of right-sided flank pain awaking her from sleep and her typical kidney stone pattern. Patient denies visible hematuria, fever, urinary frequency, chest pain, shortness of breath, vomiting, diarrhea, known sick contacts, travel history or any other aspect of ROS at this time. Is described as sharp and coming and going and typical kidney stone pattern.. 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 - Social history:: Smoking status: Patient denies any tobacco usage or history of. ROS: 05:58 Eyes: Negative for injury, pain, redness, and discharge, ENT: Negative for injury, sp3 pain, and discharge, Neck: Negative for injury, pain, and swelling, Cardiovascular: Negative for chest pain, palpitations, and edema, Respiratory: Negative for shortness of breath, cough, wheezing, and pleuritic chest pain, MS/Extremity: Negative for injury and deformity, Skin: Negative for injury, rash, and discoloration, Neuro: Negative for headache, weakness, numbness, tingling, and seizure. 05:58 Constitutional: Negative for fever, chills, and weight loss. 05:58 Constitutional: Positive for 05:59 All other systems are negative. sp3 Exam: 05:59 Head/Face: Normocephalic, atraumatic. Eyes: Pupils equal round and reactive to light, sp3 extra-ocular motions intact. Lids and lashes normal. Conjunctiva and sclera are non-icteric and not injected. Cornea within normal limits. Periorbital areas with no swelling, redness, or edema. Neck: Trachea midline, no thyromegaly or masses palpated, and no cervical lymphadenopathy. Supple, full range of motion without nuchal rigidity, or vertebral point tenderness. No Meningismus. Chest/axilla: Normal chest wall appearance and motion. Nontender with no deformity. No lesions are appreciated. Cardiovascular: Regular rate and rhythm with a normal S1 and S2. No gallops, murmurs, or rubs. Normal PMI, no JVD. No pulse deficits. Respiratory: Lungs have equal breath sounds bilaterally, clear to auscultation and percussion. No rales, rhonchi or wheezes noted. No increased work of breathing, no retractions or nasal flaring. Abdomen/GI: Soft, non-tender, with normal bowel sounds. No distension or tympany. No guarding or rebound. No evidence of tenderness throughout. Skin: Warm, dry with normal turgor. Normal color with no rashes, no lesions, and no evidence of cellulitis. MS/ Extremity: Pulses equal, no cyanosis. Neurovascular intact. Full, normal range of motion. Neuro: Awake and alert, GCS 15, oriented to person, place, time, and situation. Cranial nerves II-XII grossly intact. Motor strength 5/5 in all extremities. Sensory grossly intact. Cerebellar exam normal. Normal gait. 05:59 Constitutional: The patient appears alert, awake, uncomfortable. 05:59 Back: Right-sided flank pain and CVA tenderness. Vital Signs: 04:57 BP 140 / 82; Pulse 76; Resp 20 S; Temp 97.8(O); Pulse Ox 95% on R/A; Weight 71.67 kg bb (R); Height 5 ft. 4 in. (162.56 cm) (R); Pain 9/10; 05:32 BP 158 / 94; Pulse 82; Resp 18; Pulse Ox 100% ; tw5 06:38 BP 130 / 71; Pulse 74; Resp 18 S; Pulse Ox 97% on R/A; Pain 1/10; as6 07:50 BP 130 / 80; Pulse 76; Resp 18; Temp 98.0; Pulse Ox 99% on R/A; ph 04:57 Body Mass Index 27.12 (71.67 kg, 162.56 cm) bb MDM: 05:44 Patient medically screened. sp3 06:00 Data reviewed: vital signs, nurses notes, old medical records. ED course: -year-old sp3 female with right-sided flank pain. Differential diagnosis includes kidney stone, UTI, pyelonephritis, functional abdominal pain and less likely considering FELT CUTTER etiology, vascular pathology, GI pathology, or any other critical findings. Patient is not septic and not in shock. And CT scan noncontrast kidney stone protocol, laboratory values, urine analysis and administer Dilaudid, ketorolac, Zofran for pain control via intravenous route. Disposition will be based on final diagnosis this high complexity patient.. 07:05 ED course: Patient has a 4 mm kidney stone in the distal right ureter without any other sp3 complications. Mild hydronephrosis present. Creatinine is normal and other laboratory values are normal as well. I met high suspicious for infectious range proximal to the stone. Just patient on oral NSAID and have her follow-up with urology.. 02/18 05:16 Order name: CBC with Diff; Complete Time: 06:58 tw5 02/18 05:16 Order name: CMP; Complete Time: 06:58 tw5 02/18 05:15 Order name: CT Stone Protocol; Complete Time: 06:58 tw5 02/18 05:16 Order name: Lipase; Complete Time: 06:58 tw5 02/18 07:37 Order name: Urine Dipstick-Ancillary EDND 02/18 07:38 Order name: Urine --Ancillary (enter results) eb 02/18 05:16 Order name: IV Saline Lock; Complete Time: 05:28 tw5 02/18 05:16 Order name: Labs collected and sent; Complete Time: 05:28 tw5 02/18 05:16 Order name: Urine Dipstick-Ancillary (obtain specimen); Complete Time: 05:31 tw5 Administered Medications: 05:31 Drug: Ketorolac 15 mg Route: IVP; Site: right antecubital; tw5 05:31 Drug: Zofran (Ondansetron) 4 mg Route: IVP; Site: right antecubital; tw5 05:31 Drug: NS 0.9% 1000 ml Route: IV; Rate: 1 bolus; Site: right antecubital; tw5 07:49 Follow up: Response: No adverse reaction; IV Status: Completed infusion; IV Intake: ph 1000ml 05:53 Drug: Dilaudid (HYDROmorphone) 1 mg Route: IVP; Site: right antecubital; tw5 07:40 Drug: Dilaudid (HYDROmorphone) 1 mg Route: IVP; Site: right antecubital; ph 07:50 Follow up: Response: No adverse reaction; Pain is decreased; RASS: Alert and Calm (0) ph Disposition Summary: 02/18/22 07:08 Discharge Ordered Location: Home sp3 Condition: Stable sp3 Diagnosis - Ureterolithiasis, kidney stone sp3 Followup: sp3 - With: Private Physician - When: As needed - Reason: Continuance of care Followup: sp3 - With: Aj Rooney MD - When: Upon discharge from the Emergency Department - Reason: Further diagnostic work-up Discharge Instructions: - Discharge Summary Sheet sp3 - Kidney Stones sp3 Forms: - Medication Reconciliation Form sp3 - Thank You Letter sp3 - Antibiotic Education sp3 - Prescription Opioid Use sp3 Prescriptions: - Diclofenac Sodium 75 mg Oral Tablet Sustained Release - take 1 tablet by ORAL route 2 times per day; 30 tablet; Refills: 0, Product sp3 Selection Permitted Signatures: Dispatcher [employer] Scarlett العلي RN RN bb Hall, Patricia, RN RN ph Patel, Setul, MD MD sp3 Addis Lambert tw5 Corrections: (The following items were deleted from the chart) 05:01 04:59 Allergies: Antibiotic ointment that startes with an 'M'; laith ozuna
[2022-02-18 07:37] LABS: Urine Blood 3+ (Negative); Urine Glucose Negative (Negative); Urine Protein 1+ (Negative); Urine Specific Gravity >=1.030 (1.005-1.030)
[2022-02-18] MEDS ORDERED: HYDROMORPHONE HCL 1 MG/ML INJ ONE (07:40)
[2022-02-18 08:02] VITALS: BP 130/80; TEMP 98; O2SAT 99
== END 2022-02-18 07:51 | disposition home or self-care (01) ==
LOC: ER 04:34
DX: N20.2 Calculus of kidney with calculus of ureter (principal); Z87.442 Personal history of urinary calculi; I10 Essential (primary) hypertension; Z88.8 Allergy status to other drugs, medicaments and biological substances; Z91.048 Other nonmedicinal substance allergy status
CPT/HCPCS: 96361; 85025; 36415; 81025; 81003; 83690; 80053; 76377; 74176; 96375; 96374; 99284; J1170 ×2; J7030; J2405

== ENCOUNTER 2023-03-30 09:42 | Emergency (ER) | payer BC ==
[2023-03-30] MEDS ORDERED: LORAZEPAM 1 MG TABLET ONE (10:01)
[2023-03-30] MEDS ORDERED: LIDOCAINE 1% 20 ML MDV ONE (10:25)
[2023-03-30] MEDS ORDERED: HYDROCODONE/APAP 5/325 MG TAB ONE (10:25)
--- NOTE | 2023-03-30 11:20 | ER ---
Nurse's Notes [facility] Name: Sonam Shelley Age: 47 yrs Sex: Female : 1975 Arrival Date: 03/30/2023 Time: 09:42 Bed 12 Private MD: Diagnosis: Bitten by dog Presentation: 03/30 09:49 Chief complaint: Bit on face by family dog, immunizations up to date. Coronavirus hb screen: At this time, the client does not indicate any symptoms associated with coronavirus-19. Ebola Screen: No symptoms or risks identified at this time. Initial Sepsis Screen: Does the patient meet any 2 criteria? No. Patient's initial sepsis screen is negative. Does the patient have a suspected source of infection? No. Patient's initial sepsis screen is negative. Risk Assessment: Do you want to hurt yourself or someone else? Patient reports no desire to harm self or others. Onset of symptoms was March 30, 2023. 09:49 Method Of Arrival: Ambulatory hb 09:49 Acuity: JACOB 3 hb Triage Assessment: 10:00 Bite description: bite sustained to lower lip and upper lip by a dog, animal aa5 information: is from animal, vaccination(s) is current, Animal status: known and can be quarantined, Animal control has been notified. Historical: - Allergies: 09:51 medical tape; hb 09:51 mupirocin; hb - PMHx: 09:51 Anxiety; Depression; High Triglycerides; Hypertensive disorder; hb - PSHx: 09:51 section; Lithotripsy; Tonsillectomy; Tummy tuck; hb - Immunization history:: Adult Immunizations up to date. - Social history:: Smoking status: Patient denies any tobacco usage or history of. - Family history:: not pertinent. Assessment: 09:55 General: Appears uncomfortable, Behavior is anxious. Pain: Complains of pain in mouth aa5 and lower lip and upper lip. Neuro: Level of Consciousness is awake, alert, obeys commands, Oriented to person, place, time, situation. Cardiovascular: Patient's skin is warm and dry. Respiratory: Airway is patent Respiratory effort is even, unlabored, Respiratory pattern is regular, symmetrical. GI: No signs and/or symptoms were reported involving the gastrointestinal system. : No signs and/or symptoms were reported regarding the genitourinary system. EENT: No signs and/or symptoms were reported regarding the EENT system. Derm: Skin is pink, warm \\T\\ dry. Laceration noted to left side of upper lip, laceration noted to medial aspect of lower lip, no active bleeding noted, dry blood noted. Musculoskeletal: Range of motion: intact in all extremities. 10:00 Reassessment: Dog bite was reported to [place] [employer] by ER racing secretary, pt aware, pt aa5 states "it's not the first time my dog has bitten, he bit my son before", pt reports dog is up to date on immunizations and reports it is a dobermann breed. . 10:30 Reassessment: PD (animal control) at bedside speaking to patient. . aa5 10:42 Reassessment: Patient is alert, oriented x 3, equal unlabored respirations, skin aa5 warm/dry/pink. General: Behavior is calm, cooperative. 10:42 Reassessment: Irrigated lacerations to upper and lower lips with saline and iodine per aa5 VO, pt tolerated well. . 11:30 Reassessment: Patient is alert, oriented x 3, equal unlabored respirations, skin aa5 warm/dry/pink. Vital Signs: 09:49 BP 155 / 128; Pulse 151; Resp 20; Temp 98.4(TE); Pulse Ox 100% on R/A; Weight 79.38 kg; hb Height 5 ft. 0 in. ; Pain 5/10; 11:20 BP 136 / 95; Pulse 111; Resp 16 S; Temp 98.2(TE); Pulse Ox 100% on R/A; aa5 09:49 Body Mass Index 34.18 (79.38 kg, 152.4 cm) hb 09:49 Pain Scale: Adult hb ED Course: 09:45 Patient arrived in ED. ts1 09:51 Triage completed. hb 09:51 Arm band placed on. hb 09:52 Valerio Looney MD is Attending Physician. rt 09:58 Darlene Nugent, JOHAN is Primary Nurse. aa5 09:59 Animal control [place] police department called they will sent an officer to come eb take a report/. 11:10 Assist provider with laceration repair on upper lip and lower lip that was 2.5 cm. or aa5 less using sutures. Set up tray. Performed by Valerio Looney MD Patient tolerated well. 11:35 Patient did not have IV access during this emergency room visit. aa5 Administered Medications: 10:02 Drug: LORazepam PO 2 mg PO once Route: PO; aa5 10:41 Follow up: Response: Anxiety decreased aa5 10:41 Drug: HYDROcodone-acetaminophen PO 5 mg-325 mg 1 tabs PO once Route: PO; aa5 11:26 Follow up: Response: No adverse reaction aa5 11:10 Drug: Lidocaine Infiltration (1 %) 5 ml 5 ml Infiltration once; to bedside {Note: aa5 administered by MD during laceration repair.} Volume: 5 ml; Route: Infiltration; Outcome: 11:19 Discharge ordered by MD. rt 11:30 Discharged to home ambulatory, with family, aa5 11:30 Condition: improved 11:30 Discharge instructions given to patient, Instructed on discharge instructions, follow up and referral plans. medication usage, Demonstrated understanding of instructions, follow-up care, medications, Prescriptions given X 3, 11:35 Patient left the ED. aa5 Signatures: Darlene Nugent, RN JOHAN aa5 Romy Turner, RN Mi Garcia Ryan, MD MD rt Ivonne Cummins, MINNA PAS ts1 Corrections: (The following items were deleted from the chart) 11:46 11:45 Patient left the ED. aa5 aa5
--- NOTE | 2023-03-30 11:20 | EDPHYS ---
Physician Documentation [facility] Name: Sonam Shelley Age: 47 yrs Sex: Female : 1975 Arrival Date: 03/30/2023 Time: 09:42 Bed 12 Private MD: ED Physician Valerio Looney HPI: 03/30 14:31 This 47 yrs old Female presents to ER via Ambulatory with complaints of Dog Bite. rt 14:31 Patient presents to the ED following dog bite to the face. The dog is known, their dog, rt reportedly up-to-date on rabies immunizations. The injuries are to the top and bottom lip. No other injuries reported. Symptoms are mild in severity, no other aggravating or getting factors.. Historical: - Allergies: 09:51 medical tape; hb 09:51 mupirocin; hb - PMHx: 09:51 Anxiety; Depression; High Triglycerides; Hypertensive disorder; hb - PSHx: 09:51 section; Lithotripsy; Tonsillectomy; Tummy tuck; hb - Immunization history:: Adult Immunizations up to date. - Social history:: Smoking status: Patient denies any tobacco usage or history of. - Family history:: not pertinent. ROS: 14:31 Constitutional: Negative for fever, chills, and weight loss, Neck: Negative for injury, rt pain, and swelling, Cardiovascular: Negative for chest pain, palpitations, and edema, Respiratory: Negative for shortness of breath, cough, wheezing, and pleuritic chest pain, Abdomen/GI: Negative for abdominal pain, nausea, vomiting, diarrhea, and constipation, MS/Extremity: Negative for injury and deformity, Skin: Negative for injury, rash, and discoloration, Neuro: Negative for headache, weakness, numbness, tingling, and seizure, 14:31 Skin: Positive for laceration(s), Negative for abrasions, Exam: 14:31 Constitutional: This is a well developed, well nourished patient who is awake, alert, rt and in no acute distress. ENT: Nares patent. No nasal discharge, no septal abnormalities noted. Tympanic membranes are normal and external auditory canals are clear. Oropharynx with no redness, swelling, or masses, exudates, or evidence of obstruction, uvula midline. Mucous membranes moist. Neck: Trachea midline, no thyromegaly or masses palpated, and no cervical lymphadenopathy. Supple, full range of motion without nuchal rigidity, or vertebral point tenderness. No Meningismus. Chest/axilla: Normal chest wall appearance and motion. Nontender with no deformity. No lesions are appreciated. Cardiovascular: Regular rate and rhythm with a normal S1 and S2. No gallops, murmurs, or rubs. Normal PMI, no JVD. No pulse deficits. Respiratory: Lungs have equal breath sounds bilaterally, clear to auscultation and percussion. No rales, rhonchi or wheezes noted. No increased work of breathing, no retractions or nasal flaring. Abdomen/GI: Soft, non-tender, with normal bowel sounds. No distension or tympany. No guarding or rebound. No evidence of tenderness throughout. Skin: Warm, dry with normal turgor. Normal color with no rashes, no lesions, and no evidence of cellulitis. MS/ Extremity: Pulses equal, no cyanosis. Neurovascular intact. Full, normal range of motion. Neuro: Awake and alert, GCS 15, oriented to person, place, time, and situation. Cranial nerves II-XII grossly intact. Motor strength 5/5 in all extremities. Sensory grossly intact. Cerebellar exam normal. Normal gait. 14:31 Head/face: 1 cm deep laceration to the upper lip, involving the vermilion border. It is laterally shaped. There is an additional 1 cm laceration to the lower lip, less deep, and a U-shaped, also involving the vermilion border. Vital Signs: 09:49 BP 155 / 128; Pulse 151; Resp 20; Temp 98.4(TE); Pulse Ox 100% on R/A; Weight 79.38 kg; hb Height 5 ft. 0 in. ; Pain 5/10; 11:20 BP 136 / 95; Pulse 111; Resp 16 S; Temp 98.2(TE); Pulse Ox 100% on R/A; aa5 09:49 Body Mass Index 34.18 (79.38 kg, 152.4 cm) hb 09:49 Pain Scale: Adult hb Laceration: 14:31 Wound Repair of 1cm ( 0.4in ) full thickness laceration to upper sherri border. rt Involves the vermilion border, linearly shaped. Distal neuro/vascular/tendon intact. Anesthesia: Local anesthetic administered with 1 mls of 1% lidocaine. Wound prep: Copious irrigation. Skin closed with 5 5-0 Vicryl using simple sutures and sterile technique. Patient tolerated well. 14:31 Wound Repair of 1cm ( 0.4in ) subcutaneous laceration to lower lip. Linear shaped.. rt Distal neuro/vascular/tendon intact. Anesthesia: Local anesthetic administered with 1 mls of 1% lidocaine. Wound prep: Copious irrigation. Skin closed with 5 5-0 Vicryl using simple sutures and sterile technique. Patient tolerated well. MDM: 09:55 Patient medically screened. rt 14:31 Differential diagnosis: Dog bite, laceration. Rabies Status: Rabies immunization is not rt indicated. Data reviewed: vital signs, nurses notes. Counseling: I had a detailed discussion with the patient and/or guardian regarding the historical points, exam findings, and any diagnostic results supporting the discharge/admit diagnosis, the need for outpatient follow up, to return to the emergency department if symptoms worsen or persist or if there are any questions or concerns that arise at home. Response to treatment: the patient's symptoms have markedly improved after treatment. 03/30 09:58 Order name: Gloves, Sterile; Complete Time: 10:22 rt 12 09:58 Order name: Setup Suture Tray; Complete Time: 10:22 rt 03/30 09:58 Order name: Vicryl, Sutures; Complete Time: 10:22 rt 12 09:58 Order name: Wound Care; Complete Time: 10:41 rt Administered Medications: 10:02 Drug: LORazepam PO 2 mg PO once Route: PO; aa5 10:41 Follow up: Response: Anxiety decreased aa5 10:41 Drug: HYDROcodone-acetaminophen PO 5 mg-325 mg 1 tabs PO once Route: PO; aa5 11:26 Follow up: Response: No adverse reaction aa5 11:10 Drug: Lidocaine Infiltration (1 %) 5 ml 5 ml Infiltration once; to bedside {Note: aa5 administered by MD during laceration repair.} Volume: 5 ml; Route: Infiltration; Disposition Summary: 03/30/23 11:19 Discharge Ordered Notes: Location: Home rt Symptoms: have improved rt Condition: Stable rt Diagnosis - Bitten by dog rt Followup: rt - With: Private Physician - When: 5 - 6 days - Reason: Discharge Instructions: - Discharge Summary Sheet rt - Facial Laceration rt - Animal Bite, Adult rt Forms: - Medication Reconciliation Form rt - Thank You Letter rt - Antibiotic Education rt - Prescription Opioid Use rt - Patient Portal Instructions rt - Leadership Thank You Letter rt Prescriptions: - acetaminophen-codeine 300-30 mg Oral tablet - take 1 tablet ORAL route every 6 hours; 6 tablet; Refills: 0, Product Selection rt Permitted - Augmentin 875-125 mg Oral Tablet - take 1 tablet ORAL route every 12 hours for 10 days; 20 tablet; Refills: 0, rt Product Selection Permitted - Fluconazole 150 mg Oral tablet - take 1 tablet ORAL route once daily; 4 tablet; Refills: 0, Product Selection rt Permitted Signatures: Darlene Nugent RN RN aa5 Romy Turner RN RN Valerio Looney MD MD rt Corrections: (The following items were deleted from the chart) 11:24 09:58 Dressing - Wound ordered. rt aa5
[2023-03-30 12:13] VITALS: BP 136/95; TEMP 98.2; O2SAT 100
== END 2023-03-30 11:45 | disposition home or self-care (01) ==
LOC: ER 09:42
PROC: 0HQ1XZZ Repair Face Skin, External Approach (ICD-10-PCS; principal; 2023-03-30)
DX: S01.511A Laceration without foreign body of lip, initial encounter (principal); W54.0XXA Bitten by dog, initial encounter; Z88.8 Allergy status to other drugs, medicaments and biological substances; Z91.048 Other nonmedicinal substance allergy status
CPT/HCPCS: 99284; 12011; J2001

== ENCOUNTER → 2023-04-26 | Emergency (ER) | payer BC ==
[2023-04-26 17:43] LABS: Absolute Lymphocytes (CBC) 2.2 K/uL (0.7-4.9); Hematocrit 44.4 % (36.0-45.0); Lymphocytes % 26.6 % (15.3-44.8); MCV 80.6 fL (80-100); MPV 8.5 fL (7.6-11.3); Platelets 182 thou/uL (152-406); RBC Red Blood Cell Count 5.51 M/uL (3.86-4.86)
[2023-04-26 17:49] LABS: Protime INR 1.03
[2023-04-26 17:59] LABS: ALT/SGPT 63 U/L (13-56); AST/SGOT 26 U/L (15-37); Albumin 3.4 g/dL (3.4-5.0); Alkaline Phosphatase 106 U/L (45-117); BUN Blood Urea Nitrogen 14 mg/dL (7-18); Bicarbonate 24 mEq/L (21-32); Bilirubin Total 0.3 mg/dL (0.2-1.0); Glomerular Filtration Rate 67 ml/min (=/>90); Glucose Level 158 mg/dL (74-106); Magnesium 1.9 mg/dL (1.6-2.4); NT PRO-BNP 78 pg/mL (<125); Potassium 3.7 mEq/L (3.5-5.1); Protein, Total 7.7 g/dL (6.4-8.2); Sodium Level 139 mEq/L (136-145); Troponin High Sensitivity 3.5 pg/mL (<58.9)
--- NOTE | 2023-04-26 18:02 | RAD REPORT ---
EXAM DESCRIPTION: Jarrod Single View04/26/2023 4:58 pm CLINICAL HISTORY: CHEST PAIN COMPARISON: Abdomen 1 View (KUB) dated 09/16/2018; Abdomen 1 View (KUB) dated 06/24/2018; Abdomen 1 Vie w (KUB) dated 06/10/2018; Chest Pa And Lat (2 Views) dated 06/10/2018 TECHNIQUE: Portable AP view of the chest. FINDINGS: The lungs are clear. No pneumothorax or effusion. The cardiomediastinal contours are unre markable. IMPRESSION: No acute cardiopulmonary process.
[2023-04-26 18:05] LABS: Bilirubin Direct < 0.1 mg/dL (0-0.2); Bilirubin Indirect, Calculated ND mg/dL (0.2-0.8)
--- NOTE | 2023-04-26 18:25 | RAD REPORT ---
EXAM DESCRIPTION: CT - Head Brain Wo Cont - 04/26/2023 5:45 pm CLINICAL HISTORY: HEADACHE COMPARISON: No comparisons TECHNIQUE: Noncontrast head CT images were obtained without IV contrast. Multiplanar reformats were generated and reviewed. All CT scans are performed using dose optimization technique as appropriate and may include automated exposure control or mA/KV adjustment according to patient size. FINDINGS: No intracranial hemorrhage, mass, or edema. Midline structures are unremarkable. Normal ventricular caliber for age. Leonardo-white matter differentiation is preserved, without evidence of acute infarct. No abnormal extra- axial fluid collections. Mastoid air cells and visualized portions of the paranasal sinuses are clear. No acute bony findings. IMPRESSION: No evidence of an acute intracranial process.
--- NOTE | 2023-04-26 18:35 | ER ---
Nurse's Notes [facility] Name: Sonam Shelley Age: 47 yrs Sex: Female : 1975 Arrival Date: 04/26/2023 Time: 15:46 Bed 14 Private MD: Diagnosis: Chest pain, anxiety, headache Presentation: 04/26 16:10 Chief complaint: Patient states: Chest pains for over a week, tried to make an ph appointment with PCP and was instructed to come to ED. No chest pain at this time. Headache over 2 days, took 800mg ibuprofen yesterday with relief, has headache today. Coronavirus screen: Vaccine status: Patient reports receiving the 2nd dose of the covid vaccine. Ebola Screen: Patient denies travel to an Ebola-affected area in the 21 days before illness onset. Initial Sepsis Screen: Does the patient meet any 2 criteria? No. Patient's initial sepsis screen is negative. Does the patient have a suspected source of infection? No. Patient's initial sepsis screen is negative. Risk Assessment: Do you want to hurt yourself or someone else? Patient reports no desire to harm self or others. Onset of symptoms was April 2022. 16:10 Method Of Arrival: Ambulatory ph 16:10 Acuity: JACOB 3 ph Triage Assessment: 19:38 General: Appears in no apparent distress. Behavior is calm, cooperative, appropriate kd3 for age. Pain: Complains of pain in forehead Pain currently is 4 out of 10 on a pain scale. PATROL AGENT: 19:39 unknown kd3 Historical: - Allergies: 16:12 mupirocin; ph 16:12 medical tape; ph - PMHx: 16:12 Hypertensive disorder; High Triglycerides; Depression; Anxiety; Tachycardia (Unknown); ph 16:14 Gastric reflux; ph - PSHx: 16:12 section; Lithotripsy; Tonsillectomy; Tummy tuck; ph - Immunization history:: Client reports receiving the 2nd dose of the Covid vaccine. - Social history:: Smoking status: Patient denies any tobacco usage or history of. Screenin:33 [facility] ED Fall Risk Assessment (Adult) History of falling in the last 3 months, kd3 including since admission No falls in past 3 months (0 pts) Confusion or Disorientation No (0 pts) Intoxicated or Sedated No (0 pts) Impaired Gait No (0 pts) Mobility Assist Device Used No (0 pt) Altered Elimination No (0 pt) Score/Fall Risk Level 0 - 2 = Low Risk Oriented to surroundings, Provided non-skid footwear. Abuse screen: Denies threats or abuse. Denies injuries from another. Nutritional screening: No deficits noted. Tuberculosis screening: No symptoms or risk factors identified. Assessment: 19:33 Reassessment: Pt care assumed, pt up for discharge. Pain: Pain does not radiate. Pain kd3 radiates to forehead Pain currently is 4 out of 10 on a pain scale. Quality of pain is described as aching, Pain began 1 hour ago. Is continuous, Alleviated by nothing. Neuro: No deficits noted. Davidson Agitation-Sedation Scale (RASS): 0 - Alert and Calm Level of Consciousness is awake, alert, obeys commands, Oriented to person, place, time, situation, Appropriate for age. Cardiovascular: No deficits noted. Denies chest pain, Heart tones S1 S2 Capillary refill < 3 seconds is brisk JVD is absent Patient's skin is warm and dry. Pulses are all present. Edema is absent. Rhythm is sinus rhythm. Respiratory: No deficits noted. Airway is patent Trachea midline Respiratory effort is even, unlabored, Respiratory pattern is regular, symmetrical. GI:. Vital Signs: 16:10 BP 151 / 96; Pulse 82; Resp 17; Temp 98.5(O); Pulse Ox 99% ; Weight 78.47 kg; Height 5 ph ft. 0 in. ; Pain 4/10; 19:33 BP 124 / 80; Pulse 85; Resp 20; Temp 98.3; Pulse Ox 98% ; Pain 4/10; kd3 16:10 Body Mass Index 33.79 (78.47 kg, 152.4 cm) ph 16:10 Pain Scale: Adult ph 19:33 Pain Scale: Adult kd3 19:33 Headache kd3 Vitals: 19:33 Cardiac Rhythm Assessment Regular Sinus rhythm. kd3 [place] Coma Score: 19:33 Eye Response: spontaneous(4). Motor Response: obeys commands(6). Verbal Response: kd3 oriented(5). Total: 15. ED Course: 15:49 Patient arrived in ED. im 15:52 Collin Sanders MD is Attending Physician. sp3 16:12 Triage completed. ph 16:13 Arm band placed on right wrist. ph 17:00 XRAY Chest (1 view) In Process Unspecified. EDMS 17:17 Sharon Hensley, RN is Primary Nurse. kd3 17:33 Missed attempt(s): 22 gauge in right forearm. Bleeding controlled, band aid applied, ds4 catheter tip intact. 17:38 Basic Metabolic Panel Sent. kd3 17:38 CBC with Diff Sent. kd3 17:38 LFT's Sent. kd3 17:38 Magnesium Sent. kd3 17:38 NT PRO-BNP Sent. kd3 17:38 PT-INR Sent. kd3 17:38 Troponin HS Sent. kd3 17:46 CT Head Brain wo Cont In Process Unspecified. EDMS 19:33 No apparent distress. kd3 19:33 Patient has correct armband on for positive identification. Bed in low position. Call kd3 light in reach. Side rails up X 1. Provided Education on: Discharge instructions. Client placed on continuous cardiac and pulse oximetry monitoring. NIBP monitoring applied. 19:33 No provider procedures requiring assistance completed. Patient did not have IV access kd3 during this emergency room visit. Patient maintains SpO2 saturation greater than 95% on room air. Administered Medications: No medications were administered Medication: 19:33 VIS not applicable for this client. kd3 Outcome: 18:34 Discharge ordered by . sp3 19:33 Discharged to home ambulatory, with family, kd3 19:33 Condition: stable 19:33 Discharge instructions given to patient, family, Instructed on discharge instructions, follow up and referral plans. Demonstrated understanding of instructions, follow-up care, 19:39 Patient left the ED. kd3 Signatures: Dispatcher [employer] EDMS Guy Romo ds4 Lisa Randall, RN RN Collin Sanders MD MD sp3 Sharon Hensley, RN RN kd3 Nicolasa Farley Corrections: (The following items were deleted from the chart) 16:14 16:10 Chief complaint: Patient states: Chest pains for over a week, tried to make an ph appointment with PCP and was instructed to come to ED. No chest pain at this time. ph 16:14 16:10 BP 151 / 96; Pulse 82bpm; Resp 17bpm; Pulse Ox 99%; Temp 98.5F Oral; 78.47 kg; ph Height 5 ft. 0 in.; BMI: 33.7; Pain 0/10, Adult; ph
--- NOTE | 2023-04-26 18:35 | EDPHYS ---
Physician Documentation [facility] Name: Sonam Shelley Age: 47 yrs Sex: Female : 1975 Arrival Date: 04/26/2023 Time: 15:46 Bed 14 Private MD: ED Physician Collin Sanders HPI: 04/26 17:49 This 47 yrs old Female presents to ER via Ambulatory with complaints of Chest Pain, sp3 Headache. 17:49 47-year-old female with history of hypertension, hyperlipidemia, depression, anxiety, sp3 idiopathic tachycardia now presents to the ED with chief complaint chest pain right-sided for 7 days along with headache. Patient states she is noncompliant with her medications and thinks that is contributing to all of this. She is also complaining of anxiety. She states she gets overwhelmed due to her depression and anxiety and cannot take "all of the pills". Review of systems negative for fever, URI symptoms, shortness of breath, back pain, abdominal pain, nausea, vomiting, diarrhea, syncope, near syncope, focal neurological deficit, known sick contacts, travel history, or any other signs or symptoms on ROS at this time.. 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 - Social history:: Smoking status: Patient denies any tobacco usage or history of. ROS: 17:51 Constitutional: Negative for fever, chills, and weight loss, Eyes: Negative for injury, sp3 pain, redness, and discharge, ENT: Negative for injury, pain, and discharge, Neck: Negative for injury, pain, and swelling, Respiratory: Negative for shortness of breath, cough, wheezing, and pleuritic chest pain, Abdomen/GI: Negative for abdominal pain, nausea, vomiting, diarrhea, and constipation, Back: Negative for injury and pain, MS/Extremity: Negative for injury and deformity, Skin: Negative for injury, rash, and discoloration, Allergy/Immunology: Negative for hives, rash, and allergies, Endocrine: Negative for neck swelling, polydipsia, polyuria, polyphagia, and marked weight changes, 17:51 All other systems are negative, Exam: 17:52 Constitutional: This is a well developed, well nourished patient who is awake, alert, sp3 and in no acute distress. Head/Face: Normocephalic, atraumatic. Eyes: Pupils equal round and reactive to light, extra-ocular motions intact. Lids and lashes normal. Conjunctiva and sclera are non-icteric and not injected. Cornea within normal limits. Periorbital areas with no swelling, redness, or edema. ENT: Nares patent. No nasal discharge, no septal abnormalities noted. External auditory canals are clear. Oropharynx with no redness, swelling, or masses, exudates, or evidence of obstruction, uvula midline. Mucous membranes moist. Neck: Trachea midline, no thyromegaly or masses palpated, and no cervical lymphadenopathy. Supple, full range of motion without nuchal rigidity, or vertebral point tenderness. No Meningismus. Chest/axilla: Normal chest wall appearance and motion. Nontender with no deformity. No lesions are appreciated. Cardiovascular: Regular rate and rhythm with a normal S1 and S2. No gallops, murmurs, or rubs. Normal PMI, no JVD. No pulse deficits. Respiratory: Lungs have equal breath sounds bilaterally, clear to auscultation and percussion. No rales, rhonchi or wheezes noted. No increased work of breathing, no retractions or nasal flaring. Abdomen/GI: Soft, non-tender, with normal bowel sounds. No distension or tympany. No guarding or rebound. No evidence of tenderness throughout. Back: No spinal tenderness. No costovertebral tenderness. Full range of motion. Skin: Warm, dry with normal turgor. Normal color with no rashes, no lesions, and no evidence of cellulitis. MS/ Extremity: Pulses equal, no cyanosis. Neurovascular intact. Full, normal range of motion. Neuro: Awake and alert, GCS 15, oriented to person, place, time, and situation. Cranial nerves II-XII grossly intact. Motor strength 5/5 in all extremities. Sensory grossly intact. Cerebellar exam normal. Normal gait. 17:52 Psych: Patient very anxious and mildly tearful. She denies SI/HI or psychosis.. 17:52 ECG was reviewed by the Attending Physician. EKG demonstrates normal sinus rhythm 70 sp3 bpm with normal intervals, and normal QRS, normal ST/T-segment's without evidence of acute ischemia. Vital Signs: 16:10 BP 151 / 96; Pulse 82; Resp 17; Temp 98.5(O); Pulse Ox 99% ; Weight 78.47 kg; Height 5 ph ft. 0 in. ; Pain 4/10; 19:33 BP 124 / 80; Pulse 85; Resp 20; Temp 98.3; Pulse Ox 98% ; Pain 4/10; kd3 16:10 Body Mass Index 33.79 (78.47 kg, 152.4 cm) ph 16:10 Pain Scale: Adult ph 19:33 Pain Scale: Adult kd3 19:33 Headache kd3 [place] Coma Score: 19:33 Eye Response: spontaneous(4). Motor Response: obeys commands(6). Verbal Response: kd3 oriented(5). Total: 15. MDM: 16:18 Patient medically screened. sp3 17:53 Data reviewed: vital signs, nurses notes, old medical records, lab test result(s), EKG, sp3 radiologic studies. ED course: 47-year-old female with PMH above now with chest pain and headache. I am not highly suspicious for acute coronary syndrome pathway, PE, vascular pathology including aortic dissection and/or aneurysm, pulmonary pathology, or any other critical process including sepsis and shock. Etiology is likely MSK, anxiety or GI related since she has GERD in the past. She has not been taking her pantoprazole. Workup will include CT scan of the head, chest x-ray, EKG which is normal, laboratory values including troponin. If workup is negative and given the fact that her symptoms been going on for 1 week, we will safely discharge her home with instructions to resume her home meds and follow-up with her PCP.. 18:33 ED course: Full workup is negative including CT scan of the head, chest x-ray and sp3 laboratory values. Troponin is negative. Patient seems more calm and we will safely discharge her home at this time.. 04/26 16:18 Order name: Basic Metabolic Panel; Complete Time: 18:32 sp3 04/26 16:18 Order name: CBC with Diff; Complete Time: 18:32 sp3 04/26 16:18 Order name: LFT's; Complete Time: 18:32 sp3 04/26 16:18 Order name: Magnesium; Complete Time: 18:32 sp3 04/26 16:18 Order name: NT PRO-BNP; Complete Time: 18:32 sp3 04/26 16:18 Order name: PT-INR; Complete Time: 18:32 sp3 04/26 16:18 Order name: Troponin HS; Complete Time: 18:32 sp3 04/26 16:18 Order name: XRAY Chest (1 view); Complete Time: 18:32 sp3 04/26 16:18 Order name: CT Head Brain wo Cont; Complete Time: 18:32 sp3 04/26 16:18 Order name: EKG; Complete Time: 16:19 sp3 04/26 16:18 Order name: Cardiac monitoring; Complete Time: 17:38 sp3 04/26 16:18 Order name: EKG - Nurse/Tech; Complete Time: 17:38 sp3 04/26 16:18 Order name: Labs collected and sent; Complete Time: 17:34 sp3 04/26 16:18 Order name: O2 Per Protocol; Complete Time: 17:34 sp3 04/26 16:18 Order name: O2 Sat Monitoring; Complete Time: 17:34 sp3 Administered Medications: No medications were administered Disposition Summary: 04/26/23 18:34 Discharge Ordered Notes: Location: Home sp3 Condition: Stable sp3 Diagnosis - Chest pain, anxiety, headache sp3 Followup: sp3 - With: Private Physician - When: Upon discharge from the Emergency Department - Reason: Continuance of care Discharge Instructions: - Discharge Summary Sheet sp3 - Nonspecific Chest Pain, Adult sp3 - Managing Anxiety, Adult sp3 Forms: - Medication Reconciliation Form sp3 - Thank You Letter sp3 - Antibiotic Education sp3 - Prescription Opioid Use sp3 - Patient Portal Instructions sp3 - Leadership Thank You Letter sp3 Signatures: Dispatcher [employer] Lisa Malloy RN RN Collin Moya MD MD sp3
[2023-04-27 00:21] VITALS: BP 124/80; TEMP 98.3; O2SAT 98
--- NOTE | 2023-04-27 13:24 | EKG ---
Test Date: 2023-04-26 Test Time: 17:32:12 Carpet Sewing Machine Operator: BOO MEASUREMENT RESULTS: Intervals: Rate: 70 WA: 106 QRSD: 82 QT: 370 QTc: 399 Moro: P: 45 WA: 106 QRS: 67 T: 47 INTERPRETIVE STATEMENTS: Sinus rhythm with short [place] Septal infarct, age undetermined Abnormal ECG No previous ECG available for comparison Electronically Signed On 04-27-23 13:22:31 RIVET MACHINE OPERATOR by Gerardo aGrza
== END ==
LOC: ER 15:46
DX: R07.89 Other chest pain (principal); F41.9 Anxiety disorder, unspecified; R51.9 Headache, unspecified; I10 Essential (primary) hypertension; Z88.8 Allergy status to other drugs, medicaments and biological substances; Z91.048 Other nonmedicinal substance allergy status
CPT/HCPCS: 36415; 70450; 71045; 80048; 80076; 83735; 83880; 84484; 85025; 85610; 93005; 99284

== ENCOUNTER 2023-12-20 13:13 | Emergency (ER) | payer BC ==
[2023-12-20 14:09] LABS: Absolute Basophils 0.1 K/uL (0-0.5); Absolute Eosinophils 0.3 K/uL (0-0.5); Absolute Lymphocytes (CBC) 2.2 K/uL (0.7-4.9); Absolute Monocytes 0.7 K/uL (0.1-1.3); Absolute Neutrophil 6.7 K/uL (1.8-8.0); Eosinophils % 2.8 % (0-4.4); Hemoglobin 15.3 g/dL (12.0-15.0); Lymphocytes % 22.2 % (15.3-44.8); MCH 25.2 pg (27.0-35.0); MCHC 31.9 g/dL (32.0-36.0); MPV 9.2 fL (7.6-11.3); Monocytes % 6.5 % (3.3-12.3); Neutrophils % 67.5 % (41.7-73.7); Nucleated Red Blood Cells % 0.1 % (0-0); Platelets 188 thou/uL (152-406); RBC Red Blood Cell Count 6.07 M/uL (3.86-4.86); Red Cell Distribution Width 13.5 % (12.1-15.2)
[2023-12-20] MEDS ORDERED: ONDANSETRON 4 MG/2 ML VIAL ONE (14:11)
[2023-12-20] MEDS ORDERED: NA CHLORIDE 0.9% 1,000 ML ONE (14:12)
[2023-12-20] MEDS ORDERED: MORPHINE 4 MG/ML SYR ONE (14:12)
[2023-12-20 14:13] LABS: Specific Gravity < 1.005 (1.005-1.030); Sqamous Epithelial <5 /HPF (None Seen); Urine Bacteria None Seen /HPF (<20); Urine Bilirubin NEGATIVE (Negative); Urine Blood Negative (Negative); Urine Clarity Turbid (Clear); Urine Color Colorless (Yellow); Urine Culture Reflex Order NOT NEEDED; Urine Glucose NEGATIVE (Negative); Urine Ketones NEGATIVE (Negative); Urine Microscopic Reflex YN ORDER UMIC; Urine Nitrite NEGATIVE (Negative); Urine Protein NEGATIVE (Negative); Urine RBC <5 /HPF (None Seen); Urine Urobilinogen Normal (Normal); Urine WBC <5 /HPF (<5); Urine pH 6.5 (5.0-7.0)
[2023-12-20 14:13] LABS: Specific Gravity < 1.005 (1.005-1.030)
[2023-12-20 14:29] LABS: Albumin 3.9 g/dL (3.4-5.0); Anion Gap 7.1 mEq/L (5.0-15.0); Bilirubin Total 0.6 mg/dL (0.2-1.0); Globulin 4.1 g/dL (2.3-3.5); Potassium 4.1 mEq/L (3.5-5.1)
--- NOTE | 2023-12-20 15:14 | RAD REPORT ---
EXAM DESCRIPTION: CT - Abdomen Pelvis Wo Contrast - 12/20/2023 2:29 pm CLINICAL HISTORY: FLANK PAIN COMPARISON: Stone Protocol dated 02/18/2022; Abdomen Pelvis W Contrast dated 08/21/2021; CT ABDOMEN P CHERELLE WO CONTRAST dated 01/04/2015 TECHNIQUE: Thin cut axial CT imaging of the abdomen and pelvis was performed without IV contrast. Mu ltiplanar reformats were generated and reviewed. All CT scans are performed using dose optimization technique as appropriate and may include automated exposure control or mA/KV adjustment according to patient size. FINDINGS: No suspicious findings in the lung bases. The liver, spleen, adrenal glands, and pancreas show no suspicious findings. Gallbladder and biliary tree are also without suspicious finding. Stable contour lobulation, tiny parenchymal calcifications, and parenchymal thinning at the left veronica l upper pole. No other suspicious parenchymal findings within limits of noncontrast technique. No ke dence of radiopaque calculi or hydroureteronephrosis. No dilated bowel loops or bowel wall thickening. No free air, free fluid or inflammatory stranding. N o hernia, mass or bulky lymphadenopathy. Uterus is retroflexed. IUD in place. The urinary bladder is without significant finding. No suspicious bony findings. IMPRESSION: No acute intra-abdominal process.
--- NOTE | 2023-12-20 15:31 | ER ---
Nurse's Notes [facility] Name: Sonam Jeong Age: 47 yrs Sex: Female : 1975 Arrival Date: 12/20/2023 Time: 13:13 Bed 18 Private MD: Diagnosis: Flank Pain Presentation: 12/19 13:20 Chief complaint: Patient states: right flank pain, "pee pee hole hurts", just got off dd2 abx for UTI, maybe a kidney stone. Coronavirus screen: At this time, the client does not indicate any symptoms associated with coronavirus-19. Ebola Screen: No symptoms or risks identified at this time. Initial Sepsis Screen: Does the patient meet any 2 criteria? No. Patient's initial sepsis screen is negative. Does the patient have a suspected source of infection? No. Patient's initial sepsis screen is negative. Risk Assessment: Do you want to hurt yourself or someone else? Patient reports no desire to harm self or others. Onset of symptoms is unknown. 13:20 Method Of Arrival: Ambulatory dd2 13:20 Acuity: JACOB 4 dd2 Triage Assessment: 13:23 General: Appears uncomfortable, Behavior is calm, cooperative, appropriate for age. dd2 Pain: Complains of pain in right low back. GI: Reports nausea. 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 - Infectious Disease History:: Denies. - Social history:: Smoking status: Patient denies any tobacco usage or history of. Screenin:25 [facility] ED Fall Risk Assessment (Adult) History of falling in the last 3 months, tl4 including since admission No falls in past 3 months (0 pts) Confusion or Disorientation No (0 pts) Intoxicated or Sedated No (0 pts) Impaired Gait No (0 pts) Mobility Assist Device Used No (0 pt) Altered Elimination No (0 pt) Score/Fall Risk Level 0 - 2 = Low Risk Oriented to surroundings, Maintained a safe environment, Educated pt \\T\\ family on fall prevention, incl call for assistance when getting out of bed, Assessed \\T\\ reinforced patient's understanding of fall precautions. Abuse screen: Denies threats or abuse. Denies injuries from another. Nutritional screening: No deficits noted. Tuberculosis screening: No symptoms or risk factors identified. Assessment: 14:27 General: Appears uncomfortable, Behavior is calm, cooperative. Pain: Complains of pain tl4 in right lower quadrant and left lower quadrant and right low back. Neuro: Level of Consciousness is awake, alert, obeys commands, Oriented to person, place, time, situation, Moves all extremities. Full function Gait is Speech is normal, Facial symmetry appears normal. Cardiovascular: Capillary refill < 3 seconds Patient's skin is warm and dry. Respiratory: Airway is patent Respiratory effort is even, unlabored, Respiratory pattern is regular, symmetrical. GI: Bowel sounds present X 4 quads. Abd is soft Abdomen is tender to palpation in right lower quadrant and left lower quadrant Reports nausea. : Reports urinary frequency, vaginal pain. EENT: No signs and/or symptoms were reported regarding the EENT system. Derm: No signs and/or symptoms reported regarding the dermatologic system. Musculoskeletal: No signs and/or symptoms reported regarding the musculoskeletal system. 15:17 Reassessment: Patient and/or family updated on plan of care and expected duration. Pain tl4 level reassessed. Patient is alert, oriented x 3, equal unlabored respirations, skin warm/dry/pink. Pt resting in room, call gilliland at bedside, will continue to monitor. Vital Signs: 13:20 BP 139 / 92; Pulse 96; Resp 16; Temp 97.5; Pulse Ox 100% ; dd2 14:30 BP 137 / 85; Pulse 93; Resp 18; Pulse Ox 100% on R/A; Pain 7/10; tl4 15:30 BP 135 / 90; Pulse 95; Resp 16; Pulse Ox 99% ; cm10 14:30 Pain Scale: Adult tl4 ED Course: 13:15 Patient arrived in ED. mg5 13:18 Collin Sanders MD is Attending Physician. sp3 13:23 Triage completed. dd2 13:23 Arm band placed on right wrist. Patient placed in an exam room, on a stretcher, on dd2 gambling monitor, on pulse oximetry, Patient notified of wait time. 14:[address] [facility] 14:03 CMP Sent. 6 14:[address] [facility] 14:03 Test, Urine Sent. 6 14:04 Urinalysis w/ reflexes Sent. 6 14:04 Initial lab(s) drawn, by me, sent to lab. Inserted saline lock: 20 gauge in right 6 antecubital area, using aseptic technique. Blood collected. Flushed with 10 mL NS. 14:25 Patient has correct armband on for positive identification. Placed in gown. Bed in low tl4 position. Call light in reach. Side rails up X 1. Provided Education on: call gilliland, ed process. Client placed on continuous cardiac and pulse oximetry monitoring. NIBP monitoring applied. Door closed. Noise minimized. Lights dimmed. Moved to private room. Warm blanket given. 14:25 No provider procedures requiring assistance completed. tl4 14:30 Timur Hoang, RN is Primary Nurse. tl4 14:31 CT Abd/Pelvis - Without Contrast In Process Unspecified. EDMS 16:04 IV discontinued, intact, bleeding controlled, No redness/swelling at site. Pressure cm10 dressing applied. Administered Medications: 14:20 Drug: Ondansetron IVP 4 mg IVP once; over 2 minutes Route: IVP; Infused Over: 2 mins; tl4 Site: left antecubital; 15:18 Follow up: Response: No adverse reaction; Nausea is decreased tl4 14:24 Drug: morphine IVP or IV 4 mg IVP once over 4 mins Route: IVP; Infused Over: 4 mins; tl4 Site: right antecubital; 15:18 Follow up: Response: No adverse reaction; Pain is decreased tl4 14:29 Drug: NS 0.9% IV 1000 ml IV at 1 bolus Per protocol; 1000 mL bolus Route: IV; Rate: 1 tl4 bolus; Site: right antecubital; Delivery: Primary tubing; 16:04 Follow up: Response: No adverse reaction; IV Status: Completed infusion; IV Intake: cm10 100ml Medication: 14:25 VIS not applicable for this client. tl4 Intake: 16:04 IV: 100ml; Total: 100ml. cm10 Outcome: 15:30 Discharge ordered by MD. sp3 16:04 Discharged to home ambulatory, cm10 16:04 Condition: good 16:04 Condition: Pt A\\T\\Ox4 at the time of discharge. Pt states that she feel comfortable walking home. Pt leaving Ambulatory with steady gait, speech clear and answering questions appropriately. 16:04 Discharge instructions given to patient, Instructed on discharge instructions, follow up and referral plans. medication usage, Demonstrated understanding of instructions, follow-up care, medications, 16:06 Patient left the ED. cm10 Signatures: Dispatcher [employer] EDMS Collin Sanders MD MD sp3 Alexia Flores bc6 Sydni Syed, RN RN cm10 Geni Morales mg5 Timur Hoang RN RN tl4 JAMIE DEAN RN RN dd2
--- NOTE | 2023-12-20 15:31 | EDPHYS ---
Physician Documentation [facility] Name: Sonam Jeong Age: 47 yrs Sex: Female : 1975 Arrival Date: 12/20/2023 Time: 13:13 Bed 18 Private MD: ED Physician Collin Sanders HPI: 12/19 13:40 This 47 yrs old Female presents to ER via Ambulatory with complaints of Possible Kidney sp3 Stone. 13:40 47-year-old female with a history of hypertension, prior kidney stones, anxiety now sp3 presents to the ED with chief complaint of right flank pain suggesting that she has a kidney stone that is recurrent. Symptoms started 2 days ago and is progressively gotten worse. She endorses nausea as well. She denies dysuria, visualized hematuria, intra-abdominal pain, actual vomiting, diarrhea, chest pain, shortness breath, fever, rash, or any other signs or symptoms on ROS at this time.. 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 - Infectious Disease History:: Denies. - Social history:: Smoking status: Patient denies any tobacco usage or history of. ROS: 13:41 Constitutional: Negative for fever, chills, and weight loss, Eyes: Negative for injury, sp3 pain, redness, and discharge, ENT: Negative for injury, pain, and discharge, Neck: Negative for injury, pain, and swelling, Cardiovascular: Negative for chest pain, palpitations, and edema, Respiratory: Negative for shortness of breath, cough, wheezing, and pleuritic chest pain, MS/Extremity: Negative for injury and deformity, Skin: Negative for injury, rash, and discoloration, Neuro: Negative for headache, weakness, numbness, tingling, and seizure, Psych: Negative for depression, anxiety, suicide ideation, homicidal ideation, and hallucinations, Allergy/Immunology: Negative for hives, rash, and allergies, Endocrine: Negative for neck swelling, polydipsia, polyuria, polyphagia, and marked weight changes, Hematologic/Lymphatic: Negative for swollen nodes, abnormal bleeding, and unusual bruising, 13:41 All other systems are negative, Exam: 13:42 Constitutional: This is a well developed, well nourished patient who is awake, alert, sp3 and in no acute distress. Head/Face: Normocephalic, atraumatic. Eyes: Pupils equal round and reactive to light, extra-ocular motions intact. Lids and lashes normal. Conjunctiva and sclera are non-icteric and not injected. Cornea within normal limits. Periorbital areas with no swelling, redness, or edema. Neck: Trachea midline, no thyromegaly or masses palpated, and no cervical lymphadenopathy. Supple, full range of motion without nuchal rigidity, or vertebral point tenderness. No Meningismus. Chest/axilla: Normal chest wall appearance and motion. Nontender with no deformity. No lesions are appreciated. Cardiovascular: Regular rate and rhythm with a normal S1 and S2. No gallops, murmurs, or rubs. Normal PMI, no JVD. No pulse deficits. Respiratory: Lungs have equal breath sounds bilaterally, clear to auscultation and percussion. No rales, rhonchi or wheezes noted. No increased work of breathing, no retractions or nasal flaring. Abdomen/GI: Soft, non-tender, with normal bowel sounds. No distension or tympany. No guarding or rebound. No evidence of tenderness throughout. Skin: Warm, dry with normal turgor. Normal color with no rashes, no lesions, and no evidence of cellulitis. MS/ Extremity: Pulses equal, no cyanosis. Neurovascular intact. Full, normal range of motion. Neuro: Awake and alert, GCS 15, oriented to person, place, time, and situation. Cranial nerves II-XII grossly intact. Motor strength 5/5 in all extremities. Sensory grossly intact. Cerebellar exam normal. Normal gait. Psych: Awake, alert, with orientation to person, place and time. Behavior, mood, and affect are within normal limits. 13:42 Abdomen/GI: Right CVA tenderness., Vital Signs: 13:20 BP 139 / 92; Pulse 96; Resp 16; Temp 97.5; Pulse Ox 100% ; dd2 14:30 BP 137 / 85; Pulse 93; Resp 18; Pulse Ox 100% on R/A; Pain 7/10; tl4 15:30 BP 135 / 90; Pulse 95; Resp 16; Pulse Ox 99% ; cm10 14:30 Pain Scale: Adult tl4 MDM: 13:26 Patient medically screened. sp3 13:42 Data reviewed: vital signs, nurses notes, lab test result(s), radiologic studies. ED sp3 course: 47-year-old female with history of kidney stones now with right flank pain differential diagnosis includes ureterolithiasis/kidney stone spectrum, UTI/pyelonephritis spectrum, other GI pathology, colitis, musculoskeletal pain, among others. Workup will include CT scan of the abdomen pelvis noncontrast and a kidney stone protocol, laboratory values, urine analysis and general supportive care with IV fluids, IV morphine, IV ondansetron as needed. Disposition pending workup and patient course.. 15:19 ED course: Full workup negative. No kidney stone noted. UA demonstrates no signs of sp3 infection or bleeding. Remainder of labs normal. We will safely discharge patient home at this time.. 12/19 13:26 Order name: CBC with Diff; Complete Time: 14:29 sp3 12/19 13:26 Order name: CMP; Complete Time: 14:29 sp3 12/19 13:26 Order name: Lipase; Complete Time: 14:29 sp3 12/19 13:26 Order name: Test, Urine; Complete Time: 14:29 sp3 12/19 13:26 Order name: Urinalysis w/ reflexes; Complete Time: 14:29 sp3 12/19 13:26 Order name: CT Abd/Pelvis - Without Contrast; Complete Time: 15:17 sp3 12/19 13:26 Order name: IV Saline Lock; Complete Time: 14:03 sp3 12/19 13:26 Order name: Labs collected and sent; Complete Time: 14:03 3 Administered Medications: 14:20 Drug: Ondansetron IVP 4 mg IVP once; over 2 minutes Route: IVP; Infused Over: 2 mins; tl4 Site: left antecubital; 15:18 Follow up: Response: No adverse reaction; Nausea is decreased tl4 14:24 Drug: morphine IVP or IV 4 mg IVP once over 4 mins Route: IVP; Infused Over: 4 mins; tl4 Site: right antecubital; 15:18 Follow up: Response: No adverse reaction; Pain is decreased tl4 14:29 Drug: NS 0.9% IV 1000 ml IV at 1 bolus Per protocol; 1000 mL bolus Route: IV; Rate: 1 tl4 bolus; Site: right antecubital; Delivery: Primary tubing; 16:04 Follow up: Response: No adverse reaction; IV Status: Completed infusion; IV Intake: cm10 100ml Disposition Summary: 12/20/23 15:30 Discharge Ordered Notes: Location: Home sp3 Condition: Stable sp3 Diagnosis - Flank Pain sp3 Followup: sp3 - With: Private Physician - When: Upon discharge from the Emergency Department - Reason: Continuance of care Discharge Instructions: - Discharge Summary Sheet sp3 - Flank Pain, Adult sp3 Forms: - Medication Reconciliation Form sp3 - Antibiotic Education sp3 - Prescription Opioid Use sp3 - Patient Portal Instructions sp3 - Leadership Thank You Letter sp3 Prescriptions: - Diclofenac Sodium 75 mg Oral Tablet Sustained Release - take 1 tablet ORAL route 2 times per day; 30 tablet; Refills: 0, Product sp3 Selection Permitted Signatures: Dispatcher [employer] EDMS Collin Sanders MD MD sp3 Timur Hoang RN RN tl4 JAMIE DEAN RN RN dd2 Sydni Syed RN cm10 Corrections: (The following items were deleted from the chart) 13:27 13:27 CBC+H.LAB.BRZ ordered. EDMS EDMS 13:27 13:27 COMPREHENSIVE METABOLIC PANEL+C.LAB.BRZ ordered. EDMS EDMS 13:27 13:27 LIPASE+C.LAB.BRZ ordered. EDMS EDMS 13:27 13:27 Test, Urine+UC.LAB.BRZ ordered. EDMS EDMS 13:27 13:27 Urinalysis+U.LAB.BRZ ordered. EDMS EDMS
[2023-12-20 16:09] VITALS: TEMP 97.5
[2023-12-20 16:11] VITALS: BP 135/90; O2SAT 99
== END 2023-12-20 16:06 | disposition home or self-care (01) ==
LOC: ER 13:13
DX: R10.9 Unspecified abdominal pain (principal)
CPT/HCPCS: 85025; 81001; 36415; 81025; 83690; 80053; 74176; 99284; J2405; J7030

== ENCOUNTER 2024-01-11 17:29 | Inpatient (IN) | payer BC ==
[2024-01-11] MEDS ORDERED: ONDANSETRON 4 MG/2 ML VIAL ONE (18:12)
[2024-01-11] MEDS ORDERED: MORPHINE 4 MG/ML SYR ONE (18:13)
[2024-01-11 18:17] LABS: Absolute Basophils 0.1 K/uL (0-0.5); Absolute Eosinophils 0.1 K/uL (0-0.5); Absolute Monocytes 1.5 K/uL (0.1-1.3); Absolute Neutrophil 10.4 K/uL (1.8-8.0); Basophils % 0.6 % (0-1.3); Eosinophils % 0.6 % (0-4.4); Hematocrit 48.9 % (36.0-45.0); Hemoglobin 15.6 g/dL (12.0-15.0); Lymphocytes % 7.6 % (15.3-44.8); MCH 25.2 pg (27.0-35.0); MCHC 31.9 g/dL (32.0-36.0); MCV 78.9 fL (80-100); MPV 9.9 fL (7.6-11.3); Monocytes % 11.3 % (3.3-12.3); Neutrophils % 79.9 % (41.7-73.7); Platelets 203 thou/uL (152-406); Red Cell Distribution Width 14.2 % (12.1-15.2)
[2024-01-11] MEDS ORDERED: NA CHLORIDE 0.9% 1,000 ML ONE (18:22)
[2024-01-11 18:35] LABS: ALT/SGPT 22 U/L (13-56); AST/SGOT 11 U/L (15-37); Albumin 3.5 g/dL (3.4-5.0); Albumin/Globulin Ratio 0.8 (1.1-1.8); Alkaline Phosphatase 123 U/L (45-117); Anion Gap 12.6 mEq/L (5.0-15.0); BUN Blood Urea Nitrogen 13 mg/dL (7-18); Bicarbonate 24 mEq/L (21-32); Bilirubin Direct 0.2 mg/dL (0-0.2); Bilirubin Indirect, Calculated 0.5 mg/dL (0.2-0.8); Bilirubin Total 0.7 mg/dL (0.2-1.0); Globulin 4.4 g/dL (2.3-3.5); Glomerular Filtration Rate 71 ml/min (=/>90); Glucose Level 134 mg/dL (74-106); Lipase 50 U/L (13-75); Magnesium 1.9 mg/dL (1.6-2.4); Potassium 3.6 mEq/L (3.5-5.1); Protein, Total 7.9 g/dL (6.4-8.2); Sodium Level 136 mEq/L (136-145)
[2024-01-11 18:38] LABS: Troponin High Sensitivity < 3.0 pg/mL (<58.9)
--- NOTE | 2024-01-11 19:44 | RAD REPORT ---
EXAM: CTA of the chest, abdomen and pelvis HISTORY: Chest pain and back pain COMPARISON: CT abdomen 2021 and December 20, 2023 TECHNIQUE: Multiple contiguous axial images were obtained a CTA of the chest and abdomen with 100 cc Isovue-370 contrast administered intravenously. Per aortic dissection protocol. Sagittal and coronal 3-D MIP reformats were performed. FINDINGS: An aortic dissection not seen. No aortic aneurysm The celiac, SMA and COURT patent 2 main left renal arteries. Right and left renal arteries patent. Lungs are clear. No pleural effusion. No pericardial effusion Mild fatty liver. Low-density areas are present within the left kidney reaching the periphery likely inflammation. Left renal cortical thinning probably secondary to prior inflammation. IUD within the uterus. 2 cm mildly dense nodule left aspect of the uterus may represent a fibroid. No adnexal mass. No evidence of diverticulitis. IMPRESSION: Negative for an aortic dissection Low-density areas within the left kidney reaching the periphery probably moderate pyelonephritis
[2024-01-11 20:05] LABS: Sqamous Epithelial <5 /HPF (None Seen); Urine Bacteria <20 /HPF (<20); Urine Bilirubin NEGATIVE (Negative); Urine Blood 1+ (Negative); Urine Clarity Extremely Turbid (Clear); Urine Color Yellow (Yellow); Urine Culture Reflex Order REFLEXED; Urine Glucose NEGATIVE (Negative); Urine Ketones 3+ (Negative); Urine Micro Reflex YN NO BILL MICROSCOPIC; Urine Mucus Slight /HPF (None Seen); Urine Nitrite NEGATIVE (Negative); Urine Protein 2+ (Negative); Urine Urobilinogen Normal (Normal); Urine WBC >50 /HPF (<5); Urine WBC Clump Rare /HPF (None Seen); Urine pH 5.5 (5.0-7.0)
--- NOTE | 2024-01-11 20:27 | ER ---
Nurse's Notes [facility] Name: Sonam Jeong Age: 48 yrs Sex: Female : 1975 Arrival Date: 01/11/2024 Time: 17:29 Bed 8 Private MD: Diagnosis: Syncope;Pyelonephritis;Sepsis Presentation: 01/10 17:38 Chief complaint: Patient states: Reports syncopal event today. Chest pain started 1 tm6 hour [employer]. Abdominal and back cramps also. On strong antibiotics for STD (didn't want daughter to know), also had Mounjao shot recently. Coronavirus screen: Client denies travel out of the [place] in the last 14 days. At this time, the client does not indicate any symptoms associated with coronavirus-19. Ebola Screen: Patient denies travel to an Ebola-affected area in the 21 days before illness onset. Initial Sepsis Screen: Does the patient meet any 2 criteria? No. Patient's initial sepsis screen is negative. Does the patient have a suspected source of infection? No. Patient's initial sepsis screen is negative. Risk Assessment: Do you want to hurt yourself or someone else? Patient reports no desire to harm self or others. Onset of symptoms was January 11, 2024. 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 - Infectious Disease History:: Denies. - Social history:: Smoking status: Patient denies any tobacco usage or history of. Screenin:57 [facility] ED Fall Risk Assessment (Adult) History of falling in the last 3 months, tm6 including since admission No falls in past 3 months (0 pts) Confusion or Disorientation No (0 pts) Intoxicated or Sedated No (0 pts) Impaired Gait No (0 pts) Mobility Assist Device Used No (0 pt) Altered Elimination No (0 pt) Score/Fall Risk Level 0 - 2 = Low Risk Oriented to surroundings, Maintained a safe environment, Educated pt \T\ family on fall prevention, incl call for assistance when getting out of bed. Abuse screen: Denies threats or abuse. Denies injuries from another. Nutritional screening: No deficits noted. Tuberculosis screening: No symptoms or risk factors identified. Assessment: 17:57 General: Appears uncomfortable, Behavior is cooperative. Pain: Complains of pain in tm6 back, chest and abdomen Pain currently is 10 out of 10 on a pain scale. Pain began today. Neuro: Level of Consciousness is awake, alert, obeys commands, Oriented to person, place, time, situation. Cardiovascular: Reports chest pain, Patient's skin is warm and dry. Rhythm is sinus tachycardia. Respiratory: Airway is patent Respiratory effort is even, unlabored, Respiratory pattern is regular, symmetrical. GI: Abdomen is flat, non-distended, Reports lower abdominal pain, upper abdominal pain, nausea, vomiting. : No signs and/or symptoms were reported regarding the genitourinary system. EENT: No signs and/or symptoms were reported regarding the EENT system. Derm: No signs and/or symptoms reported regarding the dermatologic system. Musculoskeletal: Reports pain in back. 19:33 Reassessment: Patient and/or family updated on plan of care and expected duration. Pain dd2 level reassessed. Patient is alert, oriented x 3, equal unlabored respirations, skin warm/dry/pink. Pt AAOx4, respirations even and unlabored. Pt c/o pain 5/10 to lower back and LLQ. Updated pt on wait times for CT results. 21:44 Reassessment: Patient is alert, oriented x 3, equal unlabored respirations, skin dd2 warm/dry/pink. REPORT FAXED TO 2ND FLOOR. PT HAS REQUESTED TO KEEP HER OWN PERSONAL GOWN ON. Patient denies pain at this time. Vital Signs: 17:38 BP 127 / 87; Pulse 123; Resp 17; Temp 98.4; Pulse Ox 96% ; Weight 63.5 kg; Height 5 ft. tm6 0 in. ; Pain 8/10; 18:19 BP 126 / 97; Pulse 125; Resp 13; Pulse Ox 99% on R/A; MAP 107 mmHg; Pain 10/10; tm6 19:33 BP 162 / 91; Pulse 113; Resp 16; Pulse Ox 97% on R/A; dd2 21:44 BP 117 / 87; Pulse 112; Resp 16; Pulse Ox 97% on R/A; dd2 17:38 Body Mass Index 27.34 (63.50 kg, 152.4 cm) tm6 17:38 Pain Scale: Adult tm6 18:19 Pain Scale: Adult tm6 ED Course: 17:30 Patient arrived in ED. im 17:31 Valerio Looney MD is Attending Physician. rt 17:32 Krishna Alves, JOHAN is Primary Nurse. rs5 17:37 Arm band placed on Patient placed in an exam room, on a stretcher. tm6 17:41 Triage completed. tm6 17:57 Patient has correct armband on for positive identification. Bed in low position. Call tm6 light in reach. Side rails up X2. Provided Education on: use of call gilliland. Client placed on continuous cardiac and pulse oximetry monitoring. NIBP monitoring applied. night monitor on. Pulse ox on. NIBP on. Door closed. Noise minimized. Warm blanket given. Pillow given. 18:10 Inserted saline lock: 20 gauge in left antecubital area, using aseptic technique. Blood tm6 collected. Flushed with 10 mL NS. 18:10 Lipase Sent. tm6 18:10 Basic Metabolic Panel Sent. tm6 18:10 CBC with Diff Sent. tm6 18:10 LFT's Sent. tm6 18:10 Magnesium Sent. tm6 18:10 Troponin HS Sent. tm6 19:13 GC (Pierre/Chl) Probe URINE Sent. tm6 19:13 UAM Sent. tm6 19:27 CT Aorta for Dissection In Process Unspecified. EDMS 19:33 Verbal reassurance given. dd2 20:26 Gerard Lynn MD is Hospitalizing Provider. rt 20:32 Initial lab(s) drawn, by me, sent to lab. First set of blood cultures drawn. dd2 20:39 Blood Culture Adult (2) Sent. dd2 20:39 Lactate w/ 2H reflex if indic. Sent. dd2 20:39 Protime (+inr) Sent. dd2 20:39 Ptt, Activated Sent. dd2 20:39 No provider procedures requiring assistance completed. dd2 22:04 Patient admitted, IV remains in place. dd2 Administered Medications: 18:19 Drug: morphine IVP or IV 4 mg IVP once over 4 mins Route: IVP; Infused Over: 4 mins; tm6 Site: left antecubital; 18:19 Drug: Ondansetron IVP 4 mg IVP once; over 2 minutes Route: IVP; Site: left antecubital; tm6 18:24 Drug: NS 0.9% IV 1000 ml IV at 1 bolus Per protocol; 1000 mL bolus Route: IV; Rate: 1 tm6 bolus; Site: left antecubital; 19:30 Follow up: Response: No adverse reaction; IV Status: Completed infusion; IV Intake: dd2 1000ml 20:51 Drug: Rocephin - Rocephin (cefTRIAXone) IVPB 2 grams IVPB once over 30 mins; (mix in dd2 100 mL NS) Route: IVPB; Infused Over: 30 mins; Site: left antecubital; 21:06 Follow up: Response: No adverse reaction dd2 21:21 Follow up: Response: No adverse reaction; IV Status: Completed infusion; IV Intake: dd2 110ml Medication: 17:57 VIS not applicable for this client. tm6 Intake: 19:30 IV: 1000ml; Total: 1000ml. dd2 21:21 IV: 110ml; Total: 1110ml. dd2 Outcome: 20:27 Decision to Hospitalize by Provider. rt 22:04 Admitted to Med/surg accompanied by tech, via wheelchair, room 208, dd2 22:04 Condition: stable 22:04 Instructed on the need for admit, 22:59 Patient left the ED. dd2 Signatures: Dispatcher [employer] EDUT Valerio Looney MD MD rt Krishna Alves RN RN rs5 Nicolasa Farley Tawney, RN RN tm6 JAMIE DEAN RN RN dd2
--- NOTE | 2024-01-11 20:27 | EDPHYS ---
Physician Documentation [facility] Name: Sonam Jeong Age: 48 yrs Sex: Female : 1975 Arrival Date: 01/11/2024 Time: 17:29 Bed 8 Private MD: ED Physician Valerio Looney HPI: 01/10 19:07 This 48 yrs old Female presents to ER via Wheelchair with complaints of Syncope. rt 19:07 Patient presents to the ED with a syncopal event. This occurred after taking Mounjaro. rt Patient reports nausea, vomiting, abdominal pain which he attributes to taking antibiotics for reported STI. The patient reports the chest pain. It is noted the patient is tachycardic, she states that she is always tachycardic and has not been taking her beta-sangeetha for some time. Symptoms are moderate in severity, no other aggravating or alleviating factors.. 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 - Infectious Disease History:: Denies. - Social history:: Smoking status: Patient denies any tobacco usage or history of. ROS: 19:09 Constitutional: Negative for fever, chills, and weight loss, Respiratory: Negative for rt shortness of breath, cough, wheezing, and pleuritic chest pain, MS/Extremity: Negative for injury and deformity, Skin: Negative for injury, rash, and discoloration, 19:09 Cardiovascular: Positive for chest pain, Negative for edema, 19:09 Abdomen/GI: Positive for abdominal pain, nausea and vomiting, 19:09 Back: Positive for pain at rest, Negative for injury or acute deformity, 19:09 Neuro: Positive for loss of consciousness, syncope, Exam: 19:09 Constitutional: This is a well developed, well nourished patient who is awake, alert, rt and in no acute distress. Head/Face: Normocephalic, atraumatic. Chest/axilla: Normal chest wall appearance and motion. Nontender with no deformity. No lesions are appreciated. Cardiovascular: Regular rate and rhythm with a normal S1 and S2. No gallops, murmurs, or rubs. Normal PMI, no JVD. No pulse deficits. Respiratory: Lungs have equal breath sounds bilaterally, clear to auscultation and percussion. No rales, rhonchi or wheezes noted. No increased work of breathing, no retractions or nasal flaring. Skin: Warm, dry with normal turgor. Normal color with no rashes, no lesions, and no evidence of cellulitis. MS/ Extremity: Pulses equal, no cyanosis. Neurovascular intact. Full, normal range of motion. Neuro: Awake and alert, GCS 15, oriented to person, place, time, and situation. Cranial nerves II-XII grossly intact. Motor strength 5/5 in all extremities. Sensory grossly intact. Cerebellar exam normal. Normal gait. 19:09 ECG was reviewed by the Attending Physician. 19:09 Abdomen/GI: Tenderness diffusely without rebound, guarding, distention, Vital Signs: 17:38 BP 127 / 87; Pulse 123; Resp 17; Temp 98.4; Pulse Ox 96% ; Weight 63.5 kg; Height 5 ft. tm6 0 in. ; Pain 8/10; 18:19 BP 126 / 97; Pulse 125; Resp 13; Pulse Ox 99% on R/A; MAP 107 mmHg; Pain 10/10; tm6 19:33 BP 162 / 91; Pulse 113; Resp 16; Pulse Ox 97% on R/A; dd2 21:44 BP 117 / 87; Pulse 112; Resp 16; Pulse Ox 97% on R/A; dd2 17:38 Body Mass Index 27.34 (63.50 kg, 152.4 cm) tm6 17:38 Pain Scale: Adult tm6 18:19 Pain Scale: Adult tm6 MDM: 17:39 Patient medically screened. rt 20:33 Differential Diagnosis: Syncope, dysrhythmia, electrolyte disturbance, pyelonephritis, rt UTI. Data reviewed: vital signs, nurses notes, lab test result(s), EKG, radiologic studies. Consideration of Admission/Observation Patient was admitted/placed on observation. Management of patient was discussed with the following: Hospitalist: Agrees to admit. Independent interpretation of the following test(s) in the Emergency Department CT Scan: My interpretation is No aortic dissection seen on my interpretation of CT scan images. Care significantly affected by the following chronic conditions: Hypertension. Counseling: I had a detailed discussion with the patient and/or guardian regarding the historical points, exam findings, and any diagnostic results supporting the discharge/admit diagnosis, lab results, radiology results, the need for further work-up and treatment in the hospital. Response to treatment: the patient's symptoms have markedly improved after treatment. 01/10 17:58 Order name: Basic Metabolic Panel; Complete Time: 19:46 rt 01/10 17:58 Order name: CBC with Diff; Complete Time: 18:22 rt 01/10 17:58 Order name: LFT's; Complete Time: 19:46 rt 01/10 17:58 Order name: Magnesium; Complete Time: 19:46 rt 01/10 17:58 Order name: Troponin HS; Complete Time: 19:46 rt 01/10 17:58 Order name: Lipase; Complete Time: 19:46 rt 01/10 17:58 Order name: UAM; Complete Time: 20:07 rt 01/10 17:58 Order name: GC (Pierre/Chl) Probe URINE rt 01/10 20:08 Order name: Blood Culture Adult (2) rt 01/10 20:08 Order name: Lactate w/ 2H reflex if indic. rt 01/10 20:08 Order name: Protime (+inr) rt 01/10 20:08 Order name: Ptt, Activated rt 01/10 20:09 Order name: Urine Culture EDKY 01/10 20:39 Order name: CBC with Automated Diff EDKY 01/10 20:39 Order name: CBC with Automated Diff EDKY 01/10 20:39 Order name: Comprehensive Metabolic Panel EDKY 01/10 20:39 Order name: Comprehensive Metabolic Panel EDKY 01/10 17:58 Order name: CT Aorta for Dissection; Complete Time: 19:46 rt 01/10 17:58 Order name: EKG; Complete Time: 17:58 rt 01/10 17:58 Order name: Cardiac monitoring; Complete Time: 18:00 rt 01/10 17:58 Order name: EKG - Nurse/Tech; Complete Time: 18:00 rt 01/10 17:58 Order name: IV Saline Lock; Complete Time: 18:10 rt 01/10 17:58 Order name: Labs collected and sent; Complete Time: 18:10 rt 01/10 17:58 Order name: O2 Per Protocol; Complete Time: 18:00 rt 01/10 17:58 Order name: O2 Sat Monitoring; Complete Time: 18:00 rt 01/10 20:08 Order name: Accucheck; Complete Time: 20:40 rt 01/10 20:08 Order name: IV Saline Lock - Large Bore; Complete Time: 20:38 rt 01/10 20:08 Order name: Vital Signs; Complete Time: 20:38 rt EC:09 Rate is 129 beats/min. Rhythm is regular, Sinus tachycardia with No ectopy. Right axis rt deviation noted. PA interval is normal. QRS interval is normal. QT interval is normal. No Q waves. T waves are Normal. No ST changes noted. Interpreted by me. Administered Medications: 18:19 Drug: morphine IVP or IV 4 mg IVP once over 4 mins Route: IVP; Infused Over: 4 mins; tm6 Site: left antecubital; 18:19 Drug: Ondansetron IVP 4 mg IVP once; over 2 minutes Route: IVP; Site: left antecubital; tm6 18:24 Drug: NS 0.9% IV 1000 ml IV at 1 bolus Per protocol; 1000 mL bolus Route: IV; Rate: 1 tm6 bolus; Site: left antecubital; 19:30 Follow up: Response: No adverse reaction; IV Status: Completed infusion; IV Intake: dd2 1000ml 20:51 Drug: Rocephin - Rocephin (cefTRIAXone) IVPB 2 grams IVPB once over 30 mins; (mix in dd2 100 mL NS) Route: IVPB; Infused Over: 30 mins; Site: left antecubital; 21:06 Follow up: Response: No adverse reaction dd2 21:21 Follow up: Response: No adverse reaction; IV Status: Completed infusion; IV Intake: dd2 110ml Disposition Summary: 01/11/24 20:27 Hospitalization Ordered Notes: Hospitalization Status: Inpatient Admission rt Provider: Gerard Lynn rt Location: Telemetry/MedSurg (Inpatient) rt Condition: Fair rt Problem: new rt Symptoms: have improved rt Bed/Room Type: Standard rt Room Assignment: 228(01/11/24 20:53) rv1 Diagnosis - Syncope rt - Pyelonephritis rt - Sepsis rt Forms: - Medication Reconciliation Form rt - SBAR form rt - Leadership Thank You Letter rt Critical care time excluding procedures: 20:33 Critical care time: Bedside Care: 30 minutes, Consultation: 5 minutes. Total time: 35 rt minutes Signatures: Dispatcher [employer] Valerio Dickey MD MD rt Harriett Pratt rv1 Babak Harris RN RN tm6 JAMIE DEAN RN RN dd2 Corrections: (The following items were deleted from the chart) 20:53 20:27 rt rv1
--- NOTE | 2024-01-11 20:39 | P.HP ---
Certification for Inpatient Patient admitted to: Inpatient With expected LOS: >2 Midnights Practitioner: I am a practitioner with admitting privileges, knowledge of patient current condition, hospital course, and medical plan of care. Services: Services provided to patient in accordance with Admission requirements found in Title 42 Section 412.3 of the Code of Federal Regulations Patient History Date of Service: 01/11/24 Reason for admission: Left-sided pyelonephritis History of Present Illness: Is 48 years of age started having problem on Sunday became very dehydrated the left lower back pain radiating to the left groin pain became worse patient started feeling very weak being of some nausea vomiting and it appeared in the emergency room diagnosed with pyelonephritis dysuria Allergies No Known Allergies Allergy (Verified 01/04/15 22:33) Home Medications: Albuterol Sulfate [Proair Hfa] 1 puff IH PRN PRN 01/04/15 Cyclobenzaprine HCl [Flexeril] 1 tab PO Q6HP PRN 01/04/15 Doxycycline Monohydrate 1 tab PO BID 01/04/15 Duloxetine HCl 1 tab PO BEDTIME 01/04/15 Duloxetine [Cymbalta *] 1 tab PO BEDTIME 01/04/15 Magnesium Citrate 1 bottle PO PRN PRN 01/04/15 Neomycn/Baci Zn/Pmyx Bs/Pramox [Triple Antibiotic Plus Ointmnt] 1 nicole TOP DAILY 01/04/15 Ondansetron [Ondansetron Odt] 1 tab PO Q8HP PRN 01/04/15 Tramadol HCl/Acetaminophen [Tramadol-Acetaminophn 37.5-325] 2 tab PO Q4HP PRN 01/04/15 - Past Medical/Surgical History Diabetic: No -: Anxiety -: Depression -: OCD -: PTSD -: Kidney stones -: x2 -: [place] teeth -: Lasik -: Lithotripsy -: Colectomy - Family History Father -: Hypertension, Diabetes Mother Notes: psoriasis - Social History Alcohol use: No CD- Drugs: No Caffeine use: Yes Review of Systems 10-point ROS is otherwise unremarkable General: Weakness Gastrointestinal: Nausea, Vomiting, Abdominal Pain Physical Examination - Vital Signs Temperature: 98.4 F Blood Pressure: 119/79 Pulse: 86 Respirations: 16 Pulse Ox (%): 26 - Physical Exam General: Alert, In no apparent distress, Oriented x3 Neck: Supple Respiratory: Clear to auscultation bilaterally Cardiovascular: No edema, Regular rate/rhythm, Normal S1 S2 Gastrointestinal: Normal bowel sounds, Soft and benign, No tenderness Musculoskeletal: No clubbing, No swelling, No warmth Integumentary: No rashes, No breakdown - Studies Laboratory Data (last 24 hrs) 01/11/24 01/11/24 18:09 18:09 WBC 13.00 H Hgb 15.6 H Hct 48.9 H Plt Count 203 Sodium 136 Potassium 3.6 BUN 13 Creatinine 0.97 Glucose 134 H Magnesium 1.9 Total Bilirubin 0.7 AST 11 L ALT 22 Alkaline Phosphatase 123 H Lipase 50 Assessment and Plan - Problems (Diagnosis) (1) Pyelonephritis Current Visit: Yes Status: Acute Plan: Patient is 48 years of age admitted with acute onset of left-sided flank pain radiating to the left groin associated with nausea vomiting some dysuria count is mildly elevated around 13,000 urinalysis positive for infection CT scan shows left lower pole pyelonephritis admit patient start patient on high dose of Rocephin cultures IV fluids pain relief diet as tolerated Discharge Plan: Home Plan to discharge in: 48 Hours - Advance Directives Does patient have a Living Will: No Does patient have a Durable POA for Healthcare: No
[2024-01-11] MEDS: CEFTRIAXONE 1,000 MG in NA CHLORIDE 0.9% 50 ML IVPB SCH (20:41)
[2024-01-11] MEDS ORDERED: CEFTRIAXONE 2000 MG/VIAL ONE (20:43)
[2024-01-11] MEDS ORDERED: NA CHLORIDE 0.9% 100 ML ONE (20:44)
[2024-01-11 20:55] LABS: PT Prothrombin Time 14.2 SECONDS (9.4-12.5); PTT, Activated Partial Thromb 33.1 SECONDS (24.3-36.9); Protime INR 1.28
[2024-01-11] MEDS ORDERED: CEFTRIAXONE 2,000 MG in NA CHLORIDE 0.9% 100 ML IV SCH (21:00)
[2024-01-11] MEDS: NA CHLORIDE 0.9% 1,000 ML IV SCH ×2 (21:00→23:24)
[2024-01-11] MEDS: ONDANSETRON 4 MG/2 ML VIAL IV PRN (23:05)
[2024-01-11] MEDS: MORPHINE 4 MG/ML SYR IV PRN (23:05)
[2024-01-11 23:07] VITALS: BMI 27.3
[2024-01-12 05:26] LABS: Absolute Basophils 0.1 K/uL (0-0.5); Absolute Eosinophils 0.1 K/uL (0-0.5); Absolute Lymphocytes (CBC) 1.6 K/uL (0.7-4.9); Absolute Monocytes 1.4 K/uL (0.1-1.3); Absolute Neutrophil 7.3 K/uL (1.8-8.0); Basophils % 1.1 % (0-1.3); Eosinophils % 1.2 % (0-4.4); Hematocrit 41.4 % (36.0-45.0); Hemoglobin 13.7 g/dL (12.0-15.0); Lymphocytes % 15.5 % (15.3-44.8); MCH 25.8 pg (27.0-35.0); MCHC 33.1 g/dL (32.0-36.0); MCV 78.1 fL (80-100); MPV 9.1 fL (7.6-11.3); Neutrophils % 69.2 % (41.7-73.7); Platelets 163 thou/uL (152-406); RBC Red Blood Cell Count 5.31 M/uL (3.86-4.86); Red Cell Distribution Width 14.4 % (12.1-15.2)
[2024-01-12 05:44] LABS: ALT/SGPT 16 U/L (13-56); Albumin 2.7 g/dL (3.4-5.0); Albumin/Globulin Ratio 0.7 (1.1-1.8); Alkaline Phosphatase 92 U/L (45-117); Anion Gap 6.3 mEq/L (5.0-15.0); BUN Blood Urea Nitrogen 9 mg/dL (7-18); Bicarbonate 26 mEq/L (21-32); Bilirubin Total 0.5 mg/dL (0.2-1.0); Globulin 3.9 g/dL (2.3-3.5); Glomerular Filtration Rate 86 ml/min (=/>90); Glucose Level 94 mg/dL (74-106); Potassium 4.3 mEq/L (3.5-5.1); Protein, Total 6.6 g/dL (6.4-8.2); Sodium Level 136 mEq/L (136-145)
[2024-01-12 05:47] LABS: AST/SGOT < 10 U/L (15-37)
[2024-01-12] MEDS: POLYETHYL GLY 3350 17 GM/DOSE PO ONE (08:08)
[2024-01-12] MEDS: ENOXAPARIN 40 MG/0.4 ML SQ SCH (08:09)
[2024-01-12] MEDS: HYDROCODONE/APAP 5/325 MG TAB PO PRN (08:18)
--- NOTE | 2024-01-12 15:38 | P.PN ---
Date of Service: 01/12/24 Subjective: Doing well overnight No fevers WBC improving Still having left back pain ROS: 10 point ROS as noted above, otherwise negative Physical exam GEN: Alert, oriented, NAD HEENT: Normal conjunctiva, sclera anicteric CV: Regular rate and rhythm, no edema Pulm: Nonlabored respirations on room air ABD: Soft, nontender, nondistended MSK: No joint tenderness Integumentary: No rashes Neuro: Normal speech, normal affect Vitals reviewed Assessment Sepsis secondary to Left sided pyelonephritis Plan Sepsis secondary to Left sided pyelonephritis WBC improving, awaiting cultures Continue rocephin while awaiting cultures Was recently on metronidazole, zithromax, doxycycline for STI/trichomoniasis STI panel pending Has also had yeast UTI in the past VTE: Lovenox Code: Full Dispo: 24-48 hours Time Spent Managing Pts Care (In Minutes): 35
[2024-01-12] MEDS: CEFTRIAXONE 1,000 MG in NA CHLORIDE 0.9% 50 ML IVPB SCH (20:42)
[2024-01-12] MEDS: MELATONIN 5 MG TABLET PO PRN (20:48)
[2024-01-13 04:42] LABS: Hematocrit 41.1 % (36.0-45.0); Hemoglobin 13.3 g/dL (12.0-15.0); MCH 25.5 pg (27.0-35.0); MCHC 32.4 g/dL (32.0-36.0); MCV 78.5 fL (80-100); MPV 9.3 fL (7.6-11.3); Platelets 150 thou/uL (152-406); RBC Red Blood Cell Count 5.23 M/uL (3.86-4.86); Red Cell Distribution Width 14.3 % (12.1-15.2)
[2024-01-13 05:00] LABS: Anion Gap 6.6 mEq/L (5.0-15.0); Potassium 3.6 mEq/L (3.5-5.1)
[2024-01-13] MEDS ORDERED: POLYETHYL GLY 3350 17 GM/DOSE PO PRN (07:45)
[2024-01-13] MEDS: POTASSIUM 25 MEQ EFFERV TAB PO ONE (08:37)
--- NOTE | 2024-01-13 09:53 | P.PN ---
Date of Service: 01/13/24 Subjective: Doing well overnight No fevers WBC improving Back pain improving Still having nausea, only tolerating full liquids ROS: 10 point ROS as noted above, otherwise negative Physical exam GEN: Alert, oriented, NAD HEENT: Normal conjunctiva, sclera anicteric CV: Regular rate and rhythm, no edema Pulm: Nonlabored respirations on room air ABD: Soft, nontender, nondistended, no CVA tenderness MSK: No joint tenderness Integumentary: No rashes Neuro: Normal speech, normal affect Vitals reviewed Assessment Sepsis secondary to Left sided pyelonephritis Nausea, anorexia Plan Sepsis secondary to Left sided pyelonephritis WBC improving, awaiting cultures-urine culture should result tomorrow Continue rocephin while awaiting cultures Was recently on metronidazole, zithromax, doxycycline for STI/trichomoniasis STI panel pending Has also had yeast UTI in the past Nausea, anorexia Taking Mounjaro outpatient for weight loss Reports very poor appetite at home Counseled on holding this medication for now and if she chooses to go back getting a reduced dose to allow for adequate protein intake/caloric intake Tolerating full liquids, advance as tolerated VTE: Lovenox Code: Full Dispo: 24-48 hours Time Spent Managing Pts Care (In Minutes): 35
[2024-01-13] MEDS: LORAZEPAM 0.5 MG TABLET PO PRN (12:05)
[2024-01-13 21:33] VITALS: O2SAT 98
[2024-01-14 07:13] LABS: Hemoglobin 13.6 g/dL (12.0-15.0); MCH 25.2 pg (27.0-35.0); MCHC 32.3 g/dL (32.0-36.0); MCV 77.9 fL (80-100); MPV 8.8 fL (7.6-11.3); Platelets 192 thou/uL (152-406); Red Cell Distribution Width 14.6 % (12.1-15.2)
[2024-01-14 07:29] LABS: Anion Gap 6.1 mEq/L (5.0-15.0); Potassium 4.1 mEq/L (3.5-5.1)
[2024-01-14] MEDS: FAMOTIDINE 20 MG/2 ML VIAL IV SCH (08:48)
[2024-01-14 09:07] VITALS: BP 131/66; TEMP 97.8
--- NOTE | 2024-01-14 10:23 | EKG ---
Test Date: 2024-01-11 Test Time: 17:40:40 Certified Wellness Program Coordinator: IBRAHIMA MEASUREMENT RESULTS: Intervals: Rate: 129 [place]: 130 QRSD: 80 QT: 300 QTc: 439 [place]: P: 56 NJ: 130 QRS: 94 T: 51 INTERPRETIVE STATEMENTS: Sinus tachycardia Rightward axis Borderline ECG No previous ECG available for comparison Electronically Signed On 01-14-24 10:20:44 CDT by Kyler Garcia
--- NOTE | 2024-01-14 13:10 | P.DS ---
Admission Date: 01/11/24 Discharge Date: 01/14/24 Disposition: ROUTINE DISCHARGE Discharge Condition: GOOD Reason for Admission: Left-sided pyelonephritis Brief History of Present Illness: Is 48 years of age started having problem on Sunday became very dehydrated the left lower back pain radiating to the left groin pain became worse patient started feeling very weak being of some nausea vomiting and it appeared in the emergency room diagnosed with pyelonephritis dysuria Hospital Course: Assessment Sepsis secondary to Left sided pyelonephritis Nausea, anorexia Physical exam GEN: Alert, oriented, NAD HEENT: Normal conjunctiva, sclera anicteric CV: Regular rate and rhythm, no edema Pulm: Nonlabored respirations on room air ABD: Soft, nontender, nondistended, no CVA tenderness MSK: No joint tenderness Integumentary: No rashes Neuro: Normal speech, normal affect Vital Signs/Physical Exam: Temp Pulse Resp BP Pulse Ox 97.8 F 84 18 131/66 99 01/14/24 08:00 01/14/24 08:00 01/14/24 08:00 01/14/24 08:00 01/14/24 08:00 Laboratory Data at Discharge: WBC 6.90 thou/uL (4.3-10.9) 01/14/24 06:58 Hgb 13.6 g/dL (12.0-15.0) 01/14/24 06:58 Hct 42.0 % (36.0-45.0) 01/14/24 06:58 Plt Count 192 thou/uL (152-406) D 01/14/24 06:58 PT 14.2 SECONDS (9.4-12.5) H 01/11/24 20:32 INR 1.28 01/11/24 20:32 APTT 33.1 SECONDS (24.3-36.9) 01/11/24 20:32 Sodium 139 mEq/L (136-145) 01/14/24 06:58 Potassium 4.1 mEq/L (3.5-5.1) D 01/14/24 06:58 BUN 4 mg/dL (7-18) L 01/14/24 06:58 Creatinine 0.70 mg/dL (0.55-1.02) 01/14/24 06:58 Glucose 85 mg/dL (74-106) 01/14/24 06:58 Magnesium 1.9 mg/dL (1.6-2.4) 01/11/24 18:09 Total Bilirubin 0.5 mg/dL (0.2-1.0) 01/12/24 05:11 AST < 10 U/L (15-37) L 01/12/24 05:11 ALT 16 U/L (13-56) 01/12/24 05:11 Alkaline Phosphatase 92 U/L (45-117) D 01/12/24 05:11 Lipase 50 U/L (13-75) 01/11/24 18:09 Home Medications: Albuterol Sulfate [Proair Hfa] 8.5 gm IH PRN PRN 01/04/15 Ondansetron [Ondansetron Odt] 1 tab PO Q8HP PRN 01/04/15 Nebivolol HCl [Bystolic*] 20 mg PO DAILY 01/13/24 Pantoprazole Sodium [Protonix] 20 mg PO DAILY 01/13/24 Cefpodoxime Proxetil [Vantin] 200 mg PO BID 10 Days #20 tab 01/14/24 New Medications: Cefpodoxime Proxetil [Vantin] 200 mg PO BID 10 Days #20 tab Physician Discharge Instructions: 48-year-old female presented to the emergency department for left back pain, vomiting. She had recently been treated for urinary tract infection/STI with Zithromax, doxycycline. Her CT showed suspected left-sided pyelonephritis. Urine culture was obtained which grew Proteus Mirabilis which was sensitive to antibiotics aside from Macrobid. During hospitalization patient was treated with IV Rocephin, she will be discharged with cefpodoxime 200 mg by mouth twice daily for 10 additional days. She also struggled with nausea, decreased appetite during her hospitalization, she does take Mounjaro and reports that she has had problems with her appetite since being on this medication. Discussed close follow-up with her PCP and reduction in her dose to help stimulate her appetite and ensure adequate protein intake/nutrition. Patient also brought up her depression, recommend follow-up with local psychiatrist his information will be provided in discharge paperwork Diet: Regular Activity: Ad samuel Followup: Mat Moreno [ACTIVE - CAN ADMIT] - NONE,NONE [Primary Care Provider] - 1-2 Weeks Time spent managing pt's care (in minutes): 42
[2024-01-14 22:09] LABS: C.trachomatis RNA,TMA Not Detected (Not Detected); N.gonorrhoeae RNA,TMA Not Detected (Not Detected)
== END 2024-01-14 10:30 | disposition home or self-care (01) | DRG 872 ==
LOC: ER 17:29 → ERHOLD 20:36 → 2ND 22:36
PROVIDERS: ADMIT Internal Medicine Sleep Medicine; ATTEND Hospitalist
DX: A41.59 Other Gram-negative sepsis (principal); N10 Acute pyelonephritis; I10 Essential (primary) hypertension; E86.0 Dehydration; K21.9 Gastro-esophageal reflux disease without esophagitis; Z90.49 Acquired absence of other specified parts of digestive tract; Z79.899 Other long term (current) drug therapy
CPT/HCPCS: 36415; 71275; 74175; 80048; 80053; 80076; 81001; 83605; 83690; 83735; 84484; 85025; 85027; 85610; 85730; 87040; 87077; 87086; 87088; 87186; 87490; 87590; 93005; 96361; 96365; 96375; 99285; J0696; J1650; J2405; J7030; Q9967